=== PATIENT | male | born 1930 | race Caucasian/White ===

== ENCOUNTER → 2017-04-20 | Outpatient (CLI) | payer OTHER ==
[~2017-04-20] MED LIST: ACYC1CAP8 PO; ASPI-435 PO; ATEN50TA8 PO; CALC500C70 PO; CHOL100010 PO; CYT100 PO; FINA5TAB PO; FLM4 PO; METF-384 PO; MULT-506 PO; PRLSR20 PO; SIMV80TA2 PO; TRIATAB3 PO; VITA400C15 PO
[2017-04-20 14:55] LABS: BASO % 0.2 %; BASO ABS # 0.01 K/uL (0-0.2); COMPLETE YES; EOS % 1.3 %; HEMATOCRIT 46.4 % (42-52); IG% 0.3 %; LYMPH % 26.7 %; LYMPH ABS # 1.65 K/uL (1.2-3.4); MEAN CELL VOLUME 92.2 fL (80-100); MEAN CORPUSCULAR HEMOGLOBIN 30.8 pg (25-34); MEAN CORPUSCULAR HGB CONC 33.4 g/dl (32-36); MEAN PLATELET VOLUME 10.6 fL (7.4-10.4); MONO % 13.3 %; NEUT % 58.2 %; PLATELET COUNT 260 K/uL (130-400); RED BLOOD COUNT 5.03 M/uL (4.7-6.1); WHITE BLOOD COUNT 6.18 K/uL (4.8-10.8)
[2017-04-20 15:33] LABS: ALT/SGPT 22 U/L (12-78); AST/SGOT 14 U/L (15-37); BLOOD UREA NITROGEN 25 mg/dl (7-18); BUN/CREATININE RATIO 29.4 (10-20); CALCIUM 9.8 mg/dl (8.5-10.1); CARBON DIOXIDE 32 mmol/L (21-32); CHLORIDE 101 mmol/L (98-107); CREATININE 0.85 mg/dl (0.60-1.40); GLUCOSE 101 mg/dl (70-99); POTASSIUM 4.1 mmol/L (3.5-5.1); SODIUM 138 mmol/L (136-145)
[2017-04-20 15:35] LABS: ALB/GLOB RATIO 1.3 (0.9-2); ALKALINE PHOSPHATASE 59 U/L (45-117)
== END | disposition home or self-care (01) ==
LOC: C.LAB 13:04
PROVIDERS: ATTEND Nurse Practitioner Family
DX: C82.91 Follicular lymphoma, unspecified, lymph nodes of head, face, and neck (principal)

== ENCOUNTER → 2017-04-24 | Outpatient (CLI) | payer OTHER ==
[~2017-04-24] MED LIST changes: +OPTIRAY 320 IV PRN
--- NOTE | 2017-04-24 12:25 | DIAGNOSTIC IMAGING REPORT ---
CT ABD/PELVIS IV AND ORAL CONT CLINICAL HISTORY: Lymphoma COMPARISON STUDY: 10/22/2015 TECHNIQUE: Following the IV administration of 93 mL of Optiray-320, CT scan of the abdomen and pelvis was performed from the lung bases to the proximal femurs. Images are reviewed in the axial, sagittal, and coronal planes. IV contrast was administered without complication. A dose lowering technique was utilized adhering to the principles of ALARA. CT DOSE: FINDINGS: Lower chest: There are dependent atelectatic changes. Liver: The contrast-enhanced liver is normal in size, contour, and attenuation. There is no intrahepatic biliary ductal dilatation. The hepatic veins and portal veins are patent. Gallbladder: Not visualized and presumed surgically absent Spleen: Normal in size and attenuation. Pancreas: Unremarkable. Adrenal glands: Unremarkable. Kidneys: There are bilateral renal cysts. The largest in the left measures 6.4 cm. The largest in the right measures 6.6 cm. The right renal cyst demonstrates minimal wall thickening but this remains unchanged the prior study. Bowel: There are no transition zones to indicate bowel obstruction. There are no findings to indicate acute diverticulitis. There is no evidence of acute appendicitis. Peritoneum: There is no free air. There is no ascites. There are postsurgical changes of a ventral hernia repair with mesh. Superior to the mesh there is a upper abdominal fat-containing ventral hernia. This was present on the prior study. Vasculature: The abdominal aorta is normal in course and caliber. Adenopathy: None. Pelvic viscera: The bladder, and pelvic viscera are unremarkable. Skeletal structures: No destructive osseous lesions are seen. IMPRESSION: No acute intra-abdominal or pelvic findings. No evidence of pathologic adenopathy. Electronically signed by: Franky Gill M.D. 04/24/2017 12:24 PM Dictated Date/Time: 04/24/2017 12:18 PM
--- NOTE | 2017-04-24 12:34 | DIAGNOSTIC IMAGING REPORT ---
CHEST CT WITH CONTRAST CT DOSE: 928.64 mGy.cm HISTORY: Lymphoma. TECHNIQUE: Multiaxial CT images of the chest were performed following the intravenous administration of contrast. A dose lowering technique was utilized adhering to the principles of ALARA. COMPARISON: Chest CT 10/22/2015. Chest CT 11/09/2014.. FINDINGS: The central airways are patent. No pleural effusions. No pneumothorax. Stable 3 mm subpleural nodule within the left lower lobe on image 145. Tiny fat-containing bilateral Bochdalek's hernias. Bibasilar linear densities favor mild atelectasis or scarring. Stable 7 mm pleural nodule within the right lower lobe on image 182. No new or suspicious pulmonary nodules identified. No suspicious lytic or blastic osseous lesions. No mediastinal or hilar lymphadenopathy. Stable subcentimeter mediastinal lymph nodes. Coronary artery calcifications. The heart remains mildly enlarged. Normal caliber thoracic aorta. The main pulmonary arteries are patent. IMPRESSION: No change compared to the prior studies. No evidence for metastatic disease or lymphadenopathy within the chest. Electronically signed by: Marcus Garcia M.D. 04/24/2017 12:33 PM Dictated Date/Time: 04/24/2017 12:25 PM
== END | disposition home or self-care (01) ==
LOC: C.CTS 11:34
PROVIDERS: ATTEND Nurse Practitioner Family
DX: C85.90 Non-Hodgkin lymphoma, unspecified, unspecified site (principal)

== ENCOUNTER → 2017-04-27 | Outpatient (CLI) | payer OTHER ==
[~2017-04-27] MED LIST changes: -OPTIRAY 320 IV PRN
[2017-04-27 18:14] LABS: BLOOD UREA NITROGEN 24 mg/dl (7-18); BUN/CREATININE RATIO 21.5 (10-20); CALCIUM 9.1 mg/dl (8.5-10.1); CARBON DIOXIDE 30 mmol/L (21-32); CHLORIDE 103 mmol/L (98-107); GLUCOSE 165 mg/dl (70-99); POTASSIUM 4.4 mmol/L (3.5-5.1); SODIUM 138 mmol/L (136-145)
== END | disposition home or self-care (01) ==
LOC: C.LABPVFM 15:06
PROVIDERS: ATTEND Nurse Practitioner
DX: I10 Essential (primary) hypertension (principal)

== ENCOUNTER 2021-01-31 10:09 | Inpatient (IN) ==
[2021-01-31] MEDS ORDERED: ceFAZolin 2000MG 2,000 MG/15 ML SYR IV STA (11:45)
[2021-01-31] MEDS ORDERED: SODIUM CHLORIDE 0.9% 500 ML IV SCH (11:45)
[2021-01-31 12:20] LABS: Basophils # (auto) 0.01 K/uL (0-0.2); Basophils % (auto) 0.1 %; Eosinophils # (auto) 0.03 K/uL (0-0.5); Eosinophils % (auto) 0.3 %; Immature Granulocytes # (auto) 0.03 K/uL (0.00-0.02); Immature Granulocytes % (auto) 0.3 %; Lymphocytes # (auto) 1.16 K/uL (1.2-3.4); Lymphocytes % (auto) 12.8 %; Mean Corpuscular Hemoglobin 28.7 pg (25-34); Mean Corpuscular Hgb Conc 32.3 g/dL (32-36); Mean Corpuscular Volume 89.1 fL (80-100); Mean Platelet Volume 9.7 fL (7.4-10.4); Monocytes # (auto) 1.37 K/uL (0.11-0.59); Monocytes % (auto) 15.1 %; Neutrophils # (auto) 6.46 K/uL (1.4-6.5); Neutrophils % (auto) 71.4 %; Platelet Count 471 K/uL (130-400); RDW Standard Deviation 61.1 fL (36.4-46.3); Red Blood Count 3.48 M/uL (4.7-6.1); White Blood Count 9.06 K/uL (4.8-10.8)
[2021-01-31] MEDS ORDERED: HYDROmorphone INJ 0.5 MG/0.5 ML SYR IV STA (12:23)
--- NOTE | 2021-01-31 12:36 | XRay Report ---
XR chest 1V portable CLINICAL HISTORY: weakness COMPARISON STUDY: Chest radiograph January 01, 2021. FINDINGS: Prosthetic aortic valve is incidentally noted. There is moderate cardiomegaly. A moderate r ight pleural effusion has developed since prior exam. There is associated right lung opacity. There i s pulmonary vascular congestion. There is no pneumothorax. IMPRESSION: 1. Interval development of moderate right pleural effusion with associated airspace opacity. 2. Pulmonary vascular congestion with suspected mild pulmonary edema. ACT 112: Negative or not required by law. Electronically signed by: Vaibhav Bui M.D. 01/31/2021 12:35 PM
[2021-01-31 12:40] LABS: Albumin Level 2.4 gm/dl (3.4-5.0); Calcium 7.9 mg/dl (8.5-10.1); Creatinine Clr Calc Pharmacy 78.6 ml/min; Est GFR (African American) 100.7 ml/min; Est GFR (Non-African American) 86.9 ml/min; Magnesium 1.5 mg/dl (1.8-2.4); Potassium 4.5 mmol/L (3.5-5.1)
[2021-01-31 12:51] LABS: Albumin Globulin Ratio 0.7 (0.9-2); Bilirubin,Total 0.8 mg/dl (0.2-1); Globulin 3.5 gm/dl (2.5-4.0); Thyroid Stimulating Hormone 1.75 uIu/ml (0.300-4.500); Total Protein 5.9 gm/dl (6.4-8.2)
--- NOTE | 2021-01-31 12:58 | Emergency Department Note ---
History of Present Illness General Chief complaint: Leg Injury/Pain Time Seen by Provider: 01/31/21 11:30 History of Present Illness Maximum Pain Intensity: 8 89-year-old male presents to the ED with a chief complaint of generalized weakness. The patient was discharged from [facility] yesterday after 15 days of rehab. The family states that the patient went home and has not been able to walk this morning. He complains of some pain in his legs where there is some mild erythema. The patient was started on Keflex a few days ago for cellulitis of his legs. The patient denies any other specific complaints at this time. He is somewhat of a poor historian. Home Medications Medication Instructions Recorded Confirmed Type cholecalciferol (vitamin D3) 25 1,000 unit PO QPM 12/02/18 01/16/21 History mcg (1,000 unit) capsule (Vitamin D3) vitamin E 100 unit capsule 400 unit PO QPM 12/02/18 01/16/21 History clopidogrel 75 mg tablet 75 mg PO QAM 12/16/18 01/16/21 History finasteride 5 mg tablet 5 mg PO QAM 01/06/19 01/16/21 History nitroglycerin 0.4 mg sublingual 0.4 mg SL Q5M PRN #20 tab 04/07/19 01/16/21 Rx tablet (Nitrostat) warfarin 2.5 mg tablet 2.5 mg PO QPM 04/09/19 01/16/21 History atenolol 50 mg tablet 25 mg PO DAILY tab 02/21/20 01/16/21 History acyclovir 200 mg capsule 200 mg PO UD PRN 01/01/21 01/16/21 History metformin 1,000 mg tablet 1,000 mg PO BID 01/01/21 01/16/21 History thiamine HCl (vitamin B1) 100 mg 100 mg PO QPM 01/01/21 01/16/21 History tablet (Vitamin B-1) amoxicillin 500 mg-potassium 1 tab PO BID #20 tab 01/10/21 01/16/21 Rx clavulanate 125 mg tablet (Augmentin) vit 1 tab PO QPM tab 01/10/21 01/16/21 History [id number] 500 mg-50 mg-25 mg-40 mg tablet (Bioflex) atorvastatin 40 mg tablet 40 mg PO QAM 01/16/21 01/16/21 History pantoprazole 40 mg tablet,delayed 40 mg PO DAILY 01/16/21 01/16/21 History release trazodone 50 mg tablet 50 mg PO HS PRN 01/16/21 01/16/21 History triamterene 37.5 1 cap PO DAILY 01/16/21 01/16/21 History mg-hydrochlorothiazide 25 mg capsule Allergies Allergy/AdvReac Type Severity Reaction Status Date / Time adhesive Allergy Unknown SKIN Verified 01/16/21 12:54 IRRITATION diphenhydramine AdvReac Unknown PROSTATE Verified 01/16/21 12:54 PROBLEMS Latex Allergy Unknown Rash Uncoded 01/16/21 12:54 all antihistamines AdvReac Severe prostate Uncoded 01/16/21 12:54 problems Past Med/Surg History Medical History (Updated 01/31/21 @ 12:58 by Denny Vargas DO) Abnormal weight loss Aortic stenosis Benign prostate hyperplasia BPH with obstruction/lower urinary tract symptoms Carotid stenosis, non-symptomatic (12/27/18) Chronic reflux esophagitis Coronary artery disease 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 (12/10/18) DM (diabetes mellitus) Dyslipidemia, goal to be determined (06/26/09) Dyspnea on exertion Follicular lymphoma (~04/2014) GERD (gastroesophageal reflux disease) (12/10/18) Heart failure with preserved ejection fraction (12/27/18) High cholesterol HTN (hypertension) Hyperlipidemia (12/10/18) 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 Memory difficulty Orthostatic hypotension Vitamin B12 deficiency Surgical History History of cholecystectomy History of colon surgery History of colostomy temporary History of cystoscopy History of hernia repair History of prostate surgery laser vaporization with transurethral resection of prostate S/P cardiac cath 02/08 TAVAR mago procedure 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 Unable to obtain. Physical Exam Vital Signs Vital Signs - 24 hr 01/31/21 10:20 01/31/21 12:03 01/31/21 12:21 Temperature 36.5 C Temperature Source Oral Pulse Rate 75 67 Pulse Rate [Apical] 54 L Pulse Rhythm Regular Respiratory Rate 18 14 24 Respiratory Effort / Characteristics Non-Labored Respiratory Depth Shallow Respiratory Pattern Regular Blood Pressure 141/94 H Blood Pressure [Right Arm] 141/94 H Blood Pressure Mean 109 Blood Pressure Mean [Right Arm] 109 Blood Pressure Position [Right Arm] Lying Pulse Oximetry 94 99 95 Oxygen Delivery Method Room Air Room Air Room Air Sepsis Recent Fever Within 48 Hours No Sepsis New/Unexplained Change in Mental Status N/A Sepsis Action Taken by Nursing No Action Required CONSTITUTIONAL/VITAL SIGNS: Reviewed / noted above. GENERAL: Non-toxic in appearance. INTEGUMENTARY: Warm, dry, and [place]. HEAD: Normocephalic. EYES: without scleral icterus or trauma. ENT/OROPHARYNX: clear and moist. LYMPHADENOPATHY/NECK: Is supple without lymphadenopathy or meningismus. RESPIRATORY: Diminished breath sounds bilaterally with poor inspiratory effort. No increased work of breathing. CARDIOVASCULAR: Regular rate and rhythm. GI/ABDOMEN: Soft and nontender. No organomegaly or pulsatile mass. EXTREMITIES: Warm and well perfused. Some erythema noted to the bilateral legs right greater than left. There is hypersensitivity to the skin of the legs. BACK: No CVA tenderness. NEUROLOGICAL: Intact without focal deficits. PSYCHIATRIC: normal affect. MUSCULOSKELETAL: Normally developed with good muscle tone. TRIAGE NURSING DOCUMENTATION REVIEWED. Course Administered Medications Discontinued Medications Hydromorphone HCl (Hydromorphone Inj 0.5 Mg/0.5 Ml Syr) 0.5 mg IV NOW STA Stop: 01/31/21 12:24 Last Admin: 01/31/21 12:47 Dose: 0.5 mg Documented by: [id number] Sodium Chloride (Nss) 500 mls @ 999 mls/hr IV .Q31M DICK Stop: 01/31/21 12:15 Last Admin: 01/31/21 12:19 Dose: 999 mls/hr Documented by: [id number] Cefazolin Sodium (Ancef 2000mg) 2,000 mg in 15 mls @ 3.75 mls/min IV NOW STA Stop: 01/31/21 11:48 Last Admin: 01/31/21 12:19 Dose: 3.75 mls/min Documented by: [id number] Medical Decision Making Differential Diagnosis Differential includes acute coronary syndrome, myocardial infarction, CVA, TIA, anemia, infection, pneumonia, UTI, pyelonephritis, poor nutrition, dehydration, electrolyte disturbance,hypoglycemia. Medical Records Attestation: I reviewed the patient's medical records. Home Medications Current Medication List: was personally reviewed by me Laboratory Data Attestation: I reviewed the patient's lab results. Result diagrams: 01/31/21 12:10 01/31/21 12:10 Lab Results 01/31/21 01/31/21 Range/Units 12:10 12:10 WBC 9.06 (4.8-10.8) K/uL RBC 3.48 L (4.7-6.1) M/uL Hgb 10.0 L (14.0-18.0) g/dL Hct 31.0 L (42-52) % MCV 89.1 (80-100) fL MCH 28.7 (25-34) pg MCHC 32.3 (32-36) g/dL RDW Std Deviation 61.1 H (36.4-46.3) fL RDW Coeff of [place] 19.0 H (11.5-14.5) % Plt Count 471 H (130-400) K/uL MPV 9.7 (7.4-10.4) fL Immature Gran % (Auto) 0.3 % Neut % (Auto) 71.4 % Lymph % (Auto) 12.8 % [place] % (Auto) 15.1 % Eos % (Auto) 0.3 % Baso % (Auto) 0.1 % Neut # (Auto) 6.46 (1.4-6.5) K/uL Lymph # (Auto) 1.16 L (1.2-3.4) K/uL [place] # (Auto) 1.37 H (0.11-0.59) K/uL Eos # (Auto) 0.03 (0-0.5) K/uL Baso # (Auto) 0.01 (0-0.2) K/uL Immature Gran # (Auto) 0.03 H (0.00-0.02) K/uL Sodium 131 L (136-145) mmol/L Potassium 4.5 (3.5-5.1) mmol/L Chloride 100 (98-107) mmol/L Carbon Dioxide 26 (21-32) mmol/L Anion Gap 5.0 (3-11) BUN 20 H (7-18) mg/dl Creatinine 0.65 (0.6-1.4) mg/dl Est Cr Clr Drug Dosing 78.6 ml/min Est GFR ( Amer) 100.7 ml/min Est GFR (Non-Af Amer) 86.9 ml/min BUN/Creatinine Ratio 31.0 H (10-20) Glucose 82 (70-99) mg/dl Calcium 7.9 L (8.5-10.1) mg/dl Magnesium 1.5 L (1.8-2.4) mg/dl Total Bilirubin 0.8 (0.2-1) mg/dl AST 25 (15-37) U/L ALT 25 (12-78) U/L Alkaline Phosphatase 165 H (45-117) U/L Total Creatine Kinase 61 (39-308) U/L Total Protein 5.9 L (6.4-8.2) gm/dl Albumin 2.4 L (3.4-5.0) gm/dl Globulin 3.5 (2.5-4.0) gm/dl Albumin/Globulin Ratio 0.7 L (0.9-2) TSH 1.750 (0.300-4.500) uIu/ml Imaging Data Radiologist's Impression: Chest X-Ray 01/31/21 11:45 XR chest 1V portable CLINICAL HISTORY: weakness COMPARISON STUDY: Chest radiograph January 01, 2021. FINDINGS: Prosthetic aortic valve is incidentally noted. There is moderate cardiomegaly. A moderate right pleural effusion has developed since prior exam. There is associated right lung opacity. There is pulmonary vascular congestion. There is no pneumothorax. IMPRESSION: 1. Interval development of moderate right pleural effusion with associated airspace opacity. 2. Pulmonary vascular congestion with suspected mild pulmonary edema. ACT 112: Negative or not required by law. Electronically signed by: Vaibhav Bui M.D. 01/31/2021 12:35 PM ECG Data Attestation: I personally reviewed and interpreted this ECG as follows: MDM Narrative Patient presents to the ED with a chief complaint of generalized weakness and inability to be cared for at home, per the family. He lives with his elderly . He was too weak to get out of bed this morning. He was discharged from rehab facility yesterday. He was started on Keflex a few days ago for cellulitis of the legs. He does have erythema to the legs. He is afebrile here. His chest x-ray suggest a new right-sided moderate pleural effusion. There is some mild pulmonary vascular congestion with mild pulmonary edema. White blood cell count was unremarkable. Hemoglobin was baseline at 10. TSH was normal. Chemistry panel shows a calcium 7.9 and a magnesium of 1.5. BUN and creatinine are within normal limits. The patient will require further inpat ient evaluation and care. He was given IV Ancef as well as some IV Dilaudid for his discomfort in his legs. He was given some IV fluids. He will be seen by the hospitalist for further patient evaluation and care. Impression & Plan Generalized muscle weakness, Cellulitis of leg, Pleural effusion Discharge Plan Visit Data Chief Complaint: Leg Injury/Pain ED Provider: Denny Vargas Discharge Problem: Generalized muscle weakness, Cellulitis of leg, Pleural effusion Patient Disposition: Being Evaluated by Hospitalist Forms Stand Alone Forms: [facility] Prescriptions Prescriptions: No Action nitroglycerin [Nitrostat] 0.4 mg tablet, sublingual 0.4 mg SL Q5M PRN (Reason: chest pain) Qty: 20 RF: 1 clopidogrel 75 mg tablet 75 mg PO QAM RF: 0 warfarin 2.5 mg tablet 2.5 mg PO QPM RF: 0 atenolol 50 mg tablet 25 mg PO DAILY RF: 0 amoxicillin-pot clavulanate [Augmentin] 500-125 mg tablet 1 tab PO BID Qty: 20 RF: 0 vitamin E 100 unit Capsule 400 unit PO QPM RF: 0 cholecalciferol (vitamin D3) [Vitamin D3] 1,000 unit Capsule 1,000 unit PO QPM RF: 0 finasteride 5 mg tablet 5 mg PO QAM RF: 0 metformin 1,000 mg tablet 1,000 mg PO BID RF: 0 thiamine HCl (vitamin B1) [Vitamin B-1] 100 mg Tablet 100 mg PO QPM RF: 0 acyclovir 200 mg Capsule 200 mg PO UD PRN (Reason: Wound Healing) RF: 0 Bioflex 677-42-38-40 mg tablet 1 tab PO QPM RF: 0 atorvastatin 40 mg tablet 40 mg PO QAM RF: 0 trazodone 50 mg tablet 50 mg PO HS PRN (Reason: Pain) RF: 0 triamterene-hydrochlorothiazid 37.5-25 mg capsule 1 cap PO DAILY RF: 0 pantoprazole 40 mg tablet,delayed release (DR/EC) 40 mg PO DAILY RF: 0 Referrals Referrals: Stella Mazariegos CRNP [Primary Care Provider] -
--- NOTE | 2021-01-31 13:38 | History & Physical Report ---
Date of Service January 31, 2021 Assessment & Plan (1) Cellulitis of leg: Plan: 89 y/o M Hx HTN, HLD, DM, advanced dementia, AF, CAD, diastolic CHF. The pt was discharged from a rehab facility one day prior and has not been managing well at home. He is lethargic and weak per family. No CP, cough, fevers, n/v or diarrhea reported. The pt cannot provide any additional information. He does appear to have cellulitis and worsening of a LLE ulcer. Labs are notable for stable anemia, mild hyponatremia. Additionally, there is a new moderate R pleural effusion associated with an opacity in the R lung. 1) Possible PNM and effusion. Normally would schedule a thoracentesis, however, the pt suffers from advanced dementia and takes Coumadin for AF. We will treat for HCAP and reimage AM for the time being. He does not display hypoxia on admission. 2) Ulcers and cellulitis - Should be covered with . Consider adding Vanc if there is worsening. Wound care requested. 3) Hyponatremia - hypovolemic - Pt's diuretics held. Will provide gentle IVF. 4) CHF - dehydrated on admission - cont atenolol - diuretics held pending AM reassessment. 5) AF - rate controlled - cont atenolol, Coumadin - INR is pending on admission. 6) CAD - no evidence of ACS - cont statin, beta hugo, Plavix 7) Advanced dementia - family would like pt admitted to [facility] for rehab if possible 8) DM - sliding scale Code status is full while family discusses matter Total time for this admit including review of labs, meds, imaging, records - discussion with pt and ER attending - 55 min (2) Pleural effusion: (3) Dementia: (4) Atrial fibrillation: History of Present Illness Chief Complaint: Advanced dementia, cellulitis, PNM/effusion Primary Care Provider: JOSELYN Biggs 89 y/o M Hx HTN, HLD, DM, advanced dementia, AF, CAD, diastolic CHF. The pt was discharged from a rehab facility one day prior and has not been managing well at home. He is lethargic and weak per family. No CP, cough, fevers, n/v or diarrhea reported. The pt cannot provide any additional information. He does appear to have cellulitis and worsening of a LLE ulcer. Labs are notable for stable anemia, mild hyponatremia. Additionally, there is a new moderate R pleural effusion associated with an opacity in the R lung. 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 12) BPH Surgical: TAVR Social: Distant 15 year pack history Does not drink Family: Noncontributory Allergies Allergy/AdvReac Type Severity Reaction Status Date / Time adhesive Allergy Unknown SKIN Verified 01/16/21 12:54 IRRITATION diphenhydramine AdvReac Unknown PROSTATE Verified 01/16/21 12:54 PROBLEMS Latex Allergy Unknown Rash Uncoded 01/16/21 12:54 all antihistamines AdvReac Severe prostate Uncoded 01/16/21 12:54 problems Home Medications Medication Instructions Recorded Confirmed Type cholecalciferol (vitamin D3) 25 1,000 unit PO QPM 12/02/18 01/16/21 History mcg (1,000 unit) capsule (Vitamin D3) vitamin E 100 unit capsule 400 unit PO QPM 12/02/18 01/16/21 History clopidogrel 75 mg tablet 75 mg PO QAM 12/16/18 01/16/21 History finasteride 5 mg tablet 5 mg PO QAM 01/06/19 01/16/21 History nitroglycerin 0.4 mg sublingual 0.4 mg SL Q5M PRN #20 tab 04/07/19 01/16/21 Rx tablet (Nitrostat) warfarin 2.5 mg tablet 2.5 mg PO QPM 04/09/19 01/16/21 History atenolol 50 mg tablet 25 mg PO DAILY tab 02/21/20 01/16/21 History acyclovir 200 mg capsule 200 mg PO UD PRN 01/01/21 01/16/21 History metformin 1,000 mg tablet 1,000 mg PO BID 01/01/21 01/16/21 History thiamine HCl (vitamin B1) 100 mg 100 mg PO QPM 01/01/21 01/16/21 History tablet (Vitamin B-1) amoxicillin 500 mg-potassium 1 tab PO BID #20 tab 01/10/21 01/16/21 Rx clavulanate 125 mg tablet (Augmentin) vit 1 tab PO QPM tab 01/10/21 01/16/21 History Y-dbcnsma-bpwtlhcae-rutin-[id number] 500 mg-50 mg-25 mg-40 mg tablet (Bioflex) atorvastatin 40 mg tablet 40 mg PO QAM 01/16/21 01/16/21 History pantoprazole 40 mg tablet,delayed 40 mg PO DAILY 01/16/21 01/16/21 History release trazodone 50 mg tablet 50 mg PO HS PRN 01/16/21 01/16/21 History triamterene 37.5 1 cap PO DAILY 01/16/21 01/16/21 History mg-hydrochlorothiazide 25 mg capsule Past Med/Surg History Medical History (Updated 01/31/21 @ 13:49 by Adalid Peck MD) Abnormal weight loss Aortic stenosis Benign prostate hyperplasia BPH with obstruction/lower urinary tract symptoms Carotid stenosis, non-symptomatic (12/27/18) Chronic reflux esophagitis 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 (12/10/18) DM (diabetes mellitus) Dyslipidemia, goal to be determined (06/26/09) Dyspnea on exertion Follicular lymphoma (~04/2014) GERD (gastroesophageal reflux disease) (12/10/18) Heart failure with preserved ejection fraction (12/27/18) High cholesterol HTN (hypertension) Hyperlipidemia (12/10/18) 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 Memory difficulty Orthostatic hypotension Vitamin B12 deficiency Surgical History History of cholecystectomy History of colon surgery History of colostomy temporary History of cystoscopy History of hernia repair History of prostate surgery laser vaporization with transurethral resection of prostate S/P cardiac cath 02/08 TAVAR mago procedure 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) Family History Other No family history of adverse response to anesthesia No family history of bleeding disorder Social History Smoking Status: Never smoker Second Hand Exposure: No; Hx Alcohol Use: Yes Alcohol type: beer Hx Substance Use: No Preferred Language: Icelandic marital status: Current Living Situation: Spouse current occupation: Retired Feels Safe at Home: Yes Seatbelt Use: always Review of Systems Review of Systems: Cannot be obtained from this pt owing to dementia Physical Exam Physical Exam: General: Thin, disoriented, elderly M - no distress ENT: No erythema or exudates, no thrush Eyes: RADHA, EOMI Head and neck: Normocephalic, atraumatic, No JVD, neck is supple. Chest/heart: Nontender, S1,2 irreg, mild murmur Lungs: Limited exam as pt would not stop talking Abdomen: Nontender, nondistended, BS+ Neuro: No motor deficits Musculoskeletal: No joint inflammation, muscle tenderness, FROM Skin: Large ulcer with exudate on L calf. Some mild cellulitis developing on RLE. Shallow ulcers on R and L shins. Multiple bruises and excoriations on arms. Extremities: No clubbing, cyanosis, edema Results & Data Results & Data ([facility]) Vital Signs (Past 12 Hours) Vital Signs Temp Pulse Pulse Resp BP BP Pulse Ox 01/31/21 12:21 54 L 24 141/94 H 95 01/31/21 12:03 67 14 99 01/31/21 10:20 97.7 F 75 18 141/94 H 94 PG Care Time/CCT Total # of Minutes Spent Total Time Spent with Patient: Total time spent is greater than 50% in coordination of care (as documented) at patient's floor/unit and/or counseling patient: Coding Level of Care Code 95127 Initial Inpt Care Lvl 3 Diagnoses Cellulitis of leg L03.115 Laterality: right Pleural effusion J90 Dementia F03.90 Atrial fibrillation I48.91 (1) Cellulitis of leg Laterality: right Qualified Code(s): L03.115 - Cellulitis of right lower limb
[2021-01-31 13:47] LABS: INR 3.5 (0.9-1.1); Prothrombin Time 32.2 Seconds (9.0-12.0)
--- NOTE | 2021-01-31 15:10 | Electrocardiogram Report ---
Test Reason : Blood Pressure : / mmHG Vent. Rate : 074 BPM Atrial Rate : 056 BPM P-R Int : 000 ms QRS Dur : 106 ms QT Int : 420 ms P-R-T Axes : 000 099 -89 degrees QTc Int : 466 ms Atrial fibrillation Rightward axis Incomplete left bundle block Diffuse Nonspecific ST and T wave abnormality Abnormal ECG When compared with ECG of 16-JAN-2021 12:51, HR has increased by 23 bpm Otherwise no significant change Confirmed by José Brown ([id number]) on 01/31/2021 3:10:21 PM Referred By: REFERRED SELF Confirmed By:José Brown
[2021-01-31] MEDS ORDERED: GLUCAGON FOR INJ 1 MG VIAL SQ PRN (16:58)
[2021-01-31] MEDS ORDERED: GLUCOSE 10 TABS/TUBE PO PRN (16:58)
[2021-01-31] MEDS ORDERED: CARBOHYDRATES FOR HYPOGLYCEMIA PO PRN (16:58)
[2021-01-31] MEDS ORDERED: GLUCOSE 40% GEL 15 GM TUBE PO PRN (16:58)
[2021-01-31] MEDS ORDERED: NITROGLYCERIN SL 0.4 MG/TAB TAB SL PRN (16:58)
[2021-01-31] MEDS ORDERED: DEXTROSE 50% 50 ML SYRINGE IV PRN (16:58)
[2021-01-31] MEDS ORDERED: AZITHROMYCIN 500 MG in DEXTROSE 5% 250 ML IV SCH (17:30)
[2021-01-31] MEDS: INSULIN ASPART 100 UNITS/ML 3 ML PEN SC SCH ×2 (18:33→21:51)
[2021-01-31] MEDS: SODIUM CHLORIDE 0.9% 500 ML IV SCH (18:41)
[2021-01-31] MEDS: THIAMINE HCL 100 MG TAB PO SCH (20:29)
[2021-02-01] MEDS: traZODone HCL 50 MG TAB PO PRN ×2 (01:27→20:40)
[2021-02-01] MEDS: LORazepam 0.5 MG TAB PO PRN ×2 (02:27→20:40)
[2021-02-01] MEDS: SODIUM CHLORIDE 0.9% 500 ML IV SCH ×2 (05:55→08:46)
[2021-02-01] MEDS: FINASTERIDE 5 MG TAB PO SCH (07:51)
[2021-02-01] MEDS: ATENOLOL 25 MG TABLET PO SCH (07:51)
[2021-02-01] MEDS: PANTOprazole 40 MG TAB PO SCH (07:51)
[2021-02-01] MEDS: ATORVASTATIN 40 MG TAB PO SCH (07:51)
[2021-02-01] MEDS ORDERED: PIPERACILL/TAZOBAC CONSULT ACTIVE PRN (08:21)
--- NOTE | 2021-02-01 08:24 | XRay Report ---
XR chest 1V portable CLINICAL HISTORY: pnm, effusion COMPARISON STUDY: Chest radiograph January 31, 2021. FINDINGS: A moderate right pleural effusion is noted. This may have slightly decreased. This associat ed right basilar opacity. There is pulmonary vascular congestion. Cardiomegaly is noted. There may be left basilar opacity. This is unchanged. IMPRESSION: 1. Slight decrease in a moderate right pleural effusion with associated airspace opacity which may re flect consolidation or atelectasis. 2. Pulmonary vascular congestion. 3. Possible mild left basilar opacity. ACT 112: Negative or not required by law. Electronically signed by: Vaibhav Bui M.D. 02/01/2021 8:22 AM
[2021-02-01] MEDS ORDERED: PIPERACILLIN/TAZOBACTAM 4.5 GM in DEXTROSE 5% 100 ML IV SCH (08:30)
[2021-02-01] MEDS: INSULIN ASPART 100 UNITS/ML 3 ML PEN SC SCH ×4 (08:44→20:40)
[2021-02-01] MEDS ORDERED: FUROSEMIDE 40 MG in SYRINGE 0 ML IV ONE (09:00)
[2021-02-01] MEDS ORDERED: PIPERACILLIN/TAZOBACTAM 3.375 GM in DEXTROSE 5% 100 ML IV ONE (09:00)
[2021-02-01] MEDS ORDERED: CLOPIDOGREL BISULFATE 75 MG TAB PO SCH (09:00)
[2021-02-01 09:07] LABS: Basophils # (auto) 0.02 K/uL (0-0.2); Basophils % (auto) 0.2 %; Eosinophils # (auto) 0.01 K/uL (0-0.5); Eosinophils % (auto) 0.1 %; Hematocrit (blood only) 30.6 % (42-52); Hemoglobin 9.7 g/dL (14.0-18.0); Immature Granulocytes # (auto) 0.04 K/uL (0.00-0.02); Immature Granulocytes % (auto) 0.4 %; Lymphocytes # (auto) 1.17 K/uL (1.2-3.4); Lymphocytes % (auto) 11.9 %; Mean Corpuscular Hemoglobin 28.4 pg (25-34); Mean Corpuscular Hgb Conc 31.7 g/dL (32-36); Mean Corpuscular Volume 89.5 fL (80-100); Mean Platelet Volume 9.3 fL (7.4-10.4); Monocytes # (auto) 1.36 K/uL (0.11-0.59); Monocytes % (auto) 13.9 %; Neutrophils % (auto) 73.5 %; Nucleated RBC # (auto) 0.05 K/uL (0-0); Nucleated RBC % (auto) 0.6 %; Platelet Count 496 K/uL (130-400); RDW Coefficient of Variation 19.1 % (11.5-14.5); RDW Standard Deviation 62.2 fL (36.4-46.3); Red Blood Count 3.42 M/uL (4.7-6.1)
[2021-02-01 09:21] LABS: INR 3.1 (0.9-1.1); Prothrombin Time 28.7 Seconds (9.0-12.0)
[2021-02-01 09:35] LABS: BUN Creatinine Ratio 29.6 (10-20); Est GFR (African American) 103.3 ml/min; Est GFR (Non-African American) 89.2 ml/min; Magnesium 1.6 mg/dl (1.8-2.4); Potassium 4.4 mmol/L (3.5-5.1)
[2021-02-01] MEDS ORDERED: MAGNESIUM SULFATE / D5W 1 GM/100 ML BAG IV ONE (11:00)
[2021-02-01] MEDS ORDERED: OPTIRAY 320 100ml IV ONE (11:56)
[2021-02-01 12:21] LABS: Appearance Urine Clear (Clear); Bilirubin Urine Negative (Negative); Blood Urine Negative (Negative); Color Urine Yellow; Glucose Urine UA Negative (Negative); Ketones Urine Negative (Negative); Leukocyte Esterase Urine Negative (Negative); Nitrite Urine Negative (Negative); Protein Urine Negative (Negative); Specific Gravity Urine 1.006 (1.000-1.030); Urobilinogen Urine Negative (Negative)
--- NOTE | 2021-02-01 12:45 | CT Scan Report ---
CT OF THE CHEST WITH IV CONTRAST CLINICAL HISTORY: Right pleural effusion. RIGHT BASILAR AIRSPACE OPACITY COMPARISON STUDY: Chest CT dated 04/24/2017, chest x-ray dated 02/01/2021 TECHNIQUE: Following the IV administration of 94 mL of Optiray, CT of the thorax was performed from the thoracic inlet to the lung bases. Images are reviewed in the axial, sagittal, and coronal planes. IV contrast was administered without complication. A dose lowering technique was utilized adhering to the principles of ALARA. CT DOSE: 297.17 mGy.cm FINDINGS: Thyroid: Imaged portions of the thyroid gland are normal in appearance. Thoracic aorta: There is mild ectasia of descending thoracic aorta which measures 37 mm. Pulmonary vasculature: The pulmonary trunk is normal in caliber. There are no central filling defects identified to suggest pulmonary embolus. Note that this examination was not protocoled for the evalu ation of pulmonary emboli. HEART: The heart is enlarged with coronary artery calcifications. There are postsurgical changes of a n aortic valve prosthesis. There is reflux of contrast into the hepatic veins suggesting elevated rig ht heart pressures Lungs and pleural spaces: There is a moderate right pleural effusion and small to moderate left pleur al effusion. Airspace opacities within the lower lobes, likely representing compressive atelectasis. There are also right upper lobe airspace opacities. Atelectasis favored over pneumonia. Mediastinum: There is no mediastinal lymphadenopathy. There is no evidence of pathologic mediastinal lymphadenopathy Nasreen: There is no evidence of pathologic hilar adenopathy Axilla: There is no evidence of pathologic axillary lymphadenopathy Upper abdomen: There is a partially visualized 4.5 cm right renal cyst with faint rim calcification. Skeletal structures: There are no lytic or blastic osseous lesions. IMPRESSION: 1. Cardiomegaly, aortic valve replacement, and pericardial calcifications 2. Reflux of contrast into the hepatic veins suggesting elevated right heart pressures 3. Moderate right pleural effusion and [id number] left pleural effusion 4. Bilateral lower lobe dependent opacities, likely representing compressive atelectasis 5. Right upper lobe airspace opacities, atelectasis favored over pneumonia. 6. No evidence of pathologic adenopathy ACT 112: Negative or not required by law. Electronically signed by: Franky Gill M.D. 02/01/2021 12:44 PM
[2021-02-01] MEDS ORDERED: GADOBUTROL 65ML VIAL IV ONE (14:24)
--- NOTE | 2021-02-01 15:14 | Magnetic Resonance Report ---
MRI OF THE LEFT TIBIA AND FIBULA COMBO CLINICAL HISTORY: Inability to bear weight. Leg pain. COMPARISON STUDY: Radiographs of the left tibia and fibula dated 01/16/2021. TECHNIQUE: MRI of the left tibia and fibula is performed utilizing various T1 and T2-weighted sequenc es in the axial, sagittal, and coronal planes. Contrast-enhanced sequences were acquired following th e IV administration of 7.5 cc of Gadavist. The examination is significantly compromised by motion art ifact. FINDINGS: There is no marrow edema or evidence of fracture in the tibia or fibula. There is generaliz ed atrophy of the regional musculature. Marked intramuscular edema is seen involving the medial head of the gastrocnemius muscle. There is no associated abnormal postcontrast enhancement. Foci of fat wi thin the calf musculature seen on the T1-weighted sequences are likely related to remote injury. Supe rficial and deep soft tissue edema is present throughout the left leg. No organized fluid collection is seen to suggest abscess. The Achilles tendon is grossly intact. IMPRESSION: 1. Significantly motion compromised examination. 2. No osseous abnormality is seen involving the left tibia or fibula. 3. There is marked and asymmetric intramuscular edema involving the medial head of the gastrocnemius muscle. This suggests a nonspecific myositis and clinical correlation will be required. 4. Diffuse soft tissue edema is present throughout the left leg. 5. No organized fluid collection is seen to indicate abscess. Electronically signed by: Jordan Dumont M.D. 02/01/2021 3:13 PM
[2021-02-01] MEDS ORDERED: WARFARIN SOD 2.5 MG TAB PO SCH (16:00)
[2021-02-01] MEDS: PIPERACILLIN/TAZOBACTAM 3.375 GM in DEXTROSE 5% 100 ML IV SCH (16:03)
--- NOTE | 2021-02-01 17:42 | Hospitalist Progress Note ---
Date of Service February 01, 2021 Assessment & Plan (1) Cellulitis of leg: Plan: * Cellulitis with impressive wound on bilateral legs * Need further imaging to ensure no involvement of the deeper musculaturewill obtain MRI with contrast dressed * I have ordered a wound culture. Will send for culture and sensitivity * I have changed his antibiotic regimen from Ancef to Zosyn for added gram- negative coverage given his history of diabetes * Consult wound nurseappreciate recommendations * Pending MRImay need general surgery consult (2) Pleural effusion: Plan: * Does not appear to be symptomatic * Obesity suggested in the right lower lobe. * Transitioning antibiotic therapy to Zosyn which would provide adequate coverage for hospital-acquired pneumonia given his recent stay at [facility] and also aspiration given location being in the right lower lobe * Will obtain a CT scan to ensure patient does not have a mass * There was suggestion of pulmonary vascular congestion seen on imaging. Will stop IV fluids and give Lasix (3) Dementia: Plan: * Chronic. Baseline unknown but likely at baseline (4) Atrial fibrillation: Plan: * Currently in a normal sinus rhythm with controlled ventricular rate. Will hold Coumadin for now until MRI completed (in case surgical debridement needed) Plan: Plan to be discussed with Dr. Robison. Further orders as warranted. Admission and Anticipated Discharge Date Admission Date: January 31, 2021 Subjective Patient seen on daily rounds today. He is an 89-year-old white male with a reported history of HTN, HLD, diabetes mellitus, dementia, atrial fibrillation, CAD, and CHF. He is a questionable historian. From what I can gather, he had approximately 15-day stay at [facility] for rehab and was discharged on the day prior to arrival. He was weak and unable to get out of bed which prompted his evaluation to our emergency room. There he was found to have multiple wounds primarily on his lower legs. He had been started on a course of Keflex to discharge from [facility]. It is uncertain as to how these wounds appeared. In addition, his work-up yielded development of a moderate right pleural effusion with an airspace opacity along with pulmonary vascular congestion concerning for pulmonary edema. Patient denies any respiratory symptoms including a cough or shortness of breath. He is not hypoxic (92% on room air). He does have a reported history of CHF.I do not see Lasix on his medication list. Review of Systems Review of Systems: Patient is a questionable historian given his dementia. He is oriented to self, time. Perhaps his history is reliable All systems reviewed and are unremarkable except as noted in HPI and below Complains of pain of the lower extremities but otherwise, denies fevers, chills, headache, nasal congestion, sore throat, cough, chest pain, shortness of breath, abdominal pain, nausea, vomiting, dysuria, hematuria, frequency, Physical Exam Physical Exam: General: Resting comfortably in his hospital bed. Yelling out constantly "nurse nurse". appears chronically ill but not toxic Neck: No JVD. Negative hepatojugular reflex Cardiac: [place] in a NSR with CVR Lungs:speaking and breathing comfortably on ambient air. Diminished bilaterally without W/R/R Abdomen: Normoactive X4. Soft and nontender in all quadrants. Extremities: large wounds on bilateral posterior legs (mid calf)--right much worse than left. Copious amount of mucopurulent drainage. Neuro:Awake. orneted to place, person and time. Not oriented to situation. Cranial nerves II through XII are grossly intact no focal neuro deficits Skin:see above Results & Data Results & Data ([facility]) Vital Signs (Past 12 Hours) Vital Signs Temp Pulse Resp BP BP Pulse Ox 02/01/21 15:32 36.6 C 70 16 157/83 H 92 02/01/21 06:59 36.6 C 75 18 143/86 H 92 Laboratory Results 02/01/21 08:39 02/01/21 08:39 PG Care Time/CCT Total # of Minutes Spent Total Time Spent with Patient: Total time spent is greater than 50% in coordination of care (as documented) at patient's floor/unit and/or counseling patient: Coding Level of Care Code 19006 Subseq Hosp Care Lvl 3 Diagnoses Cellulitis of leg L03.115 Laterality: right Pleural effusion J90 Dementia F03.90 Atrial fibrillation I48.91 (1) Cellulitis of leg Laterality: right Qualified Code(s): L03.115 - Cellulitis of right lower limb
[2021-02-01] MEDS: THIAMINE HCL 100 MG TAB PO SCH (20:40)
[2021-02-02] MEDS: PIPERACILLIN/TAZOBACTAM 3.375 GM in DEXTROSE 5% 100 ML IV SCH ×4 (00:10→23:02)
[2021-02-02] MEDS: LORazepam 0.5 MG TAB PO PRN ×2 (04:17→18:44)
[2021-02-02 06:18] LABS: Basophils # (auto) 0.02 K/uL (0-0.2); Basophils % (auto) 0.2 %; Eosinophils # (auto) 0.03 K/uL (0-0.5); Eosinophils % (auto) 0.3 %; Hematocrit (blood only) 30.4 % (42-52); Hemoglobin 9.6 g/dL (14.0-18.0); Immature Granulocytes # (auto) 0.04 K/uL (0.00-0.02); Immature Granulocytes % (auto) 0.4 %; Lymphocytes # (auto) 1.26 K/uL (1.2-3.4); Mean Corpuscular Hemoglobin 28.3 pg (25-34); Mean Corpuscular Hgb Conc 31.6 g/dL (32-36); Mean Corpuscular Volume 89.7 fL (80-100); Mean Platelet Volume 9.5 fL (7.4-10.4); Monocytes # (auto) 1.32 K/uL (0.11-0.59); Monocytes % (auto) 14.6 %; Neutrophils # (auto) 6.36 K/uL (1.4-6.5); Neutrophils % (auto) 70.5 %; Nucleated RBC # (auto) 0.05 K/uL (0-0); Nucleated RBC % (auto) 0.6 %; Platelet Count 462 K/uL (130-400); RDW Coefficient of Variation 18.9 % (11.5-14.5); RDW Standard Deviation 61.5 fL (36.4-46.3); Red Blood Count 3.39 M/uL (4.7-6.1); White Blood Count 9.03 K/uL (4.8-10.8)
[2021-02-02 06:26] LABS: INR 2.7 (0.9-1.1); Prothrombin Time 25.3 Seconds (9.0-12.0)
[2021-02-02 06:56] LABS: BUN Creatinine Ratio 26.3 (10-20); Calcium 7.8 mg/dl (8.5-10.1); Creatinine Clr Calc Pharmacy 74.8 ml/min; Est GFR (Non-African American) 86.3 ml/min; Magnesium 1.7 mg/dl (1.8-2.4); Potassium 3.4 mmol/L (3.5-5.1)
[2021-02-02] MEDS: PANTOprazole 40 MG TAB PO SCH (08:36)
[2021-02-02] MEDS: FINASTERIDE 5 MG TAB PO SCH (08:36)
[2021-02-02] MEDS: ATORVASTATIN 40 MG TAB PO SCH (08:36)
[2021-02-02] MEDS: ATENOLOL 25 MG TABLET PO SCH (08:36)
[2021-02-02] MEDS: INSULIN ASPART 100 UNITS/ML 3 ML PEN SC SCH ×4 (09:51→21:07)
[2021-02-02] MEDS ORDERED: PHYTONADIONE 5 MG TAB PO ONE (12:51)
[2021-02-02] MEDS ORDERED: POTASSIUM CHLORIDE CRTAB 20 MEQ TABCR PO ONE (12:54)
[2021-02-02] MEDS ORDERED: MAGNESIUM OXIDE 400 MG TAB PO ONE (13:30)
--- NOTE | 2021-02-02 13:50 | Surgery Consultation ---
Date of Consultation February 02, 2021 Assessment & Plan (1) Decubitus ulcer: Patient has a relatively large necrotic ulcer of the left posterior proximal leg Extremely painful to inspection with necrotic eschar MRI shows this to the gastrocnemius muscle To promote healing it would need to be debrided which will be a large deep wound requiring a wound VAC We will not be able to done under local and may be difficult with sedation Patient is a very high risk medical patient with a very large right pleural effusion I very much doubt he is going to significantly improve in the next weeks Depending on the plan we may proceed in 48 to 72 hours but not this weekend We will obtain an anesthesia consult History of Present Illness Attending Physician: Darryl Medrano MD History of Present Illness 89-year-old male with left lower extremity posterior calf lesion-likely a pressure ulcer Abnormal MRI with involvement of the medial head of the gastrocnemius muscle and lower extremity edema Recent long stay at [facility] rehab also with a very large right pleural effusion History of congestive heart failure atrial fibrillation on Coumadin diabetes hypertension coronary disease Coumadin has been held Allergies Allergy/AdvReac Type Severity Reaction Status Date / Time adhesive Allergy Unknown SKIN Verified 01/31/21 14:29 IRRITATION diphenhydramine AdvReac Unknown PROSTATE Verified 01/31/21 14:29 PROBLEMS Latex Allergy Unknown Rash Uncoded 01/31/21 14:29 all antihistamines AdvReac Severe prostate Uncoded 01/31/21 14:29 problems Home Medications Medication Instructions Recorded Confirmed Type cholecalciferol (vitamin D3) 25 1,000 unit PO QPM 12/02/18 01/31/21 History mcg (1,000 unit) capsule (Vitamin D3) vitamin E 100 unit capsule 400 unit PO QPM 12/02/18 01/31/21 History clopidogrel 75 mg tablet 75 mg PO QAM 12/16/18 01/31/21 History finasteride 5 mg tablet 5 mg PO QAM 01/06/19 01/31/21 History nitroglycerin 0.4 mg sublingual 0.4 mg SL Q5M PRN #20 tab 04/07/19 01/31/21 Rx tablet (Nitrostat) atenolol 50 mg tablet 50 mg PO HS tab 02/21/20 01/31/21 History acyclovir 200 mg capsule 200 mg PO UD PRN 01/01/21 01/31/21 History metformin 1,000 mg tablet 1,000 mg PO BID 01/01/21 01/31/21 History thiamine HCl (vitamin B1) 100 mg 100 mg PO QPM 01/01/21 01/31/21 History tablet (Vitamin B-1) atorvastatin 40 mg tablet 40 mg PO QAM 01/16/21 01/31/21 History pantoprazole 40 mg tablet,delayed 40 mg PO DAILYBB 01/16/21 01/31/21 History release trazodone 50 mg tablet 100 mg PO HS PRN 01/16/21 01/31/21 History cephalexin 500 mg capsule 500 mg PO BID 01/31/21 01/31/21 History cyanocobalamin (vitamin B-12) 1,000 mcg IM MONTHLY 01/31/21 01/31/21 History 1,000 mcg/mL injection solution quetiapine 25 mg tablet 0 mg PO DIRECTED 01/31/21 01/31/21 History warfarin 2 mg tablet 0 mg PO DIRECTED 01/31/21 01/31/21 History Patient History Medical History (Updated 02/02/21 @ 15:11 by Chris Mendiola MD, FACS) Abnormal weight loss Aortic stenosis Benign prostate hyperplasia BPH with obstruction/lower urinary tract symptoms Carotid stenosis, non-symptomatic (12/27/18) 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 (12/10/18) DM (diabetes mellitus) Dyslipidemia, goal to be determined (06/26/09) Dyspnea on exertion Follicular lymphoma (~04/2014) GERD (gastroesophageal reflux disease) (12/10/18) Heart failure with preserved ejection fraction (12/27/18) High cholesterol HTN (hypertension) Hyperlipidemia (12/10/18) 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 Memory difficulty Orthostatic hypotension Vitamin B12 deficiency Surgical History History of cholecystectomy History of colon surgery History of colostomy temporary History of cystoscopy History of hernia repair History of prostate surgery laser vaporization with transurethral resection of prostate S/P cardiac cath 02/08 TAVAR mago procedure 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) Family History Other No family history of adverse response to anesthesia No family history of bleeding disorder Social History Smoking Status: Former smoker Second Hand Exposure: Yes (mother & father); Do You Dip or Chew Tobacco: No; Hx Alcohol Use: Yes (not within 30 days) Alcohol type: beer Hx Substance Use: No Preferred Language: [place] Communication Ability: Effective Sales Agent Financial Report Service Required: No Beliefs That Will Affect Care: None marital status: Current Living Situation: Spouse current occupation: Retired Other Information That Helps Us Care for You: No Feels Safe at Home: Yes Seatbelt Use: always Assistive Devices: Walker Review of Systems Review of Systems: All systems reviewed & are unremarkable except as noted in HPI & below Physical Exam Constitutional: + ill appearing; no acute distress Eyes: + anicteric sclerae Respiratory: no respiratory distress Cardiovascular: Rate/Rhythm: + irregularly irregular Gastrointestinal (Abdomen): Inspection/Auscultation: abdomen not distended Skin: no rashes Results & Data ([facility]) Vital Signs (Past 12 Hours) Vital Signs Temp Pulse Resp BP Pulse Ox 02/02/21 07:45 36.4 C L 90 18 144/84 H 96 PG Care Time/CCT Total # of Minutes Spent Total Time Spent with Patient: Total time spent is greater than 50% in coordination of care (as documented) at patient's floor/unit and/or counseling patient: Coding Level of Care Code 00461 Initial Inpt Care Lvl 3 Diagnoses Decubitus ulcer L89.90
--- NOTE | 2021-02-02 14:00 | Pulmonary Consultation ---
Date of Consultation February 02, 2021 Assessment & Plan (1) Pleural effusion: 89-year-old male with a history of diastolic CHF, dementia, atrial fibrillation on warfarin and coronary artery disease who is currently in the hospital due to lower extremity cellulitis. Bilateral pleural effusions, right greater than left: Suspect this is related to diastolic CHF and low oncotic pressure. At the time of my physical exam, the fire sprinkler service technician was performing an echocardiogram. I was able to use the ultrasound to take a look at the bilateral hemithorax to evaluate for pleural effusion. Minimal left pleural effusion was seen. Right hemithorax demonstrated a small to moderate sized right free-flowing pleural effusion. Interstitial B-lines were seen as well suggestive of pulmonary edema. Continue with IV diuretic therapy. Doubt infectious etiology at this time. We will hold off on thoracentesis at this time given his advanced dementia and reasonable respiratory status. He does not appear to be short of breath. Can consider thoracentesis if respiratory status worsens. INR will need to be below 1.8 for consideration of thoracentesis. Thank you for the consultation. Please call with questions. (2) Atrial fibrillation: (3) Dementia: History of Present Illness Reason for Consultation: Bilateral pleural effusions Attending Physician: Darryl Medrano MD History of Present Illness 89-year-old male admitted to the hospital due to lethargy and weakness. He has a history of advanced dementia. He also has a history of hypertension, hyperlipidemia, diabetes mellitus, atrial fibrillation, coronary artery disease and aortic stenosis. He is currently on warfarin for A. fib. There was concern of pneumonia and he was started on antibiotics. He also has lower extremity cellulitis. CT of the chest was completed which demonstrated bilateral effusions, right greater than left. Atelectasis was seen in the right likely due to compression. Patient is currently saturating 96% on room air. He does not appear short of breath. Denies chest pain. No recent fevers or chills. History from the patient somewhat limited due to dementia. I was able to review the chart and discussed with the patient's hospitalist. Allergies Allergy/AdvReac Type Severity Reaction Status Date / Time adhesive Allergy Unknown SKIN Verified 01/31/21 14:29 IRRITATION diphenhydramine AdvReac Unknown PROSTATE Verified 01/31/21 14:29 PROBLEMS Latex Allergy Unknown Rash Uncoded 01/31/21 14:29 all antihistamines AdvReac Severe prostate Uncoded 01/31/21 14:29 problems Home Medications Medication Instructions Recorded Confirmed Type cholecalciferol (vitamin D3) 25 1,000 unit PO QPM 12/02/18 01/31/21 History mcg (1,000 unit) capsule (Vitamin D3) vitamin E 100 unit capsule 400 unit PO QPM 12/02/18 01/31/21 History clopidogrel 75 mg tablet 75 mg PO QAM 12/16/18 01/31/21 History finasteride 5 mg tablet 5 mg PO QAM 01/06/19 01/31/21 History nitroglycerin 0.4 mg sublingual 0.4 mg SL Q5M PRN #20 tab 04/07/19 01/31/21 Rx tablet (Nitrostat) atenolol 50 mg tablet 50 mg PO HS tab 02/21/20 01/31/21 History acyclovir 200 mg capsule 200 mg PO UD PRN 01/01/21 01/31/21 History metformin 1,000 mg tablet 1,000 mg PO BID 01/01/21 01/31/21 History thiamine HCl (vitamin B1) 100 mg 100 mg PO QPM 01/01/21 01/31/21 History tablet (Vitamin B-1) atorvastatin 40 mg tablet 40 mg PO QAM 01/16/21 01/31/21 History pantoprazole 40 mg tablet,delayed 40 mg PO DAILYBB 01/16/21 01/31/21 History release trazodone 50 mg tablet 100 mg PO HS PRN 01/16/21 01/31/21 History cephalexin 500 mg capsule 500 mg PO BID 01/31/21 01/31/21 History cyanocobalamin (vitamin B-12) 1,000 mcg IM MONTHLY 01/31/21 01/31/21 History 1,000 mcg/mL injection solution quetiapine 25 mg tablet 0 mg PO DIRECTED 01/31/21 01/31/21 History warfarin 2 mg tablet 0 mg PO DIRECTED 01/31/21 01/31/21 History Patient History Medical History (Updated 01/31/21 @ 13:49 by Adalid Peck MD) Abnormal weight loss Aortic stenosis Benign prostate hyperplasia BPH with obstruction/lower urinary tract symptoms Carotid stenosis, non-symptomatic (12/27/18) 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 (12/10/18) DM (diabetes mellitus) Dyslipidemia, goal to be determined (06/26/09) Dyspnea on exertion Follicular lymphoma (~04/2014) GERD (gastroesophageal reflux disease) (12/10/18) Heart failure with preserved ejection fraction (12/27/18) High cholesterol HTN (hypertension) Hyperlipidemia (12/10/18) 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 Memory difficulty Orthostatic hypotension Vitamin B12 deficiency Surgical History History of cholecystectomy History of colon surgery History of colostomy temporary History of cystoscopy History of hernia repair History of prostate surgery laser vaporization with transurethral resection of prostate S/P cardiac cath 02/08 TAVAR mago procedure 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) Family History Other No family history of adverse response to anesthesia No family history of bleeding disorder Social History Smoking Status: Former smoker Second Hand Exposure: Yes (mother & father); Do You Dip or Chew Tobacco: No; Hx Alcohol Use: Yes (not within 30 days) Alcohol type: beer Hx Substance Use: No Preferred Language: [place] Communication Ability: Effective Dining Room Attendant Required: No Beliefs That Will Affect Care: None marital status: Current Living Situation: Spouse current occupation: Retired Other Information That Helps Us Care for You: No Feels Safe at Home: Yes Seatbelt Use: always Assistive Devices: Walker Review of Systems Review of Systems: Largely unobtainable due to dementia and lethargy. Does not appear to be in significant distress. He shook his head no when asked if he had chest pain or shortness of breath. Physical Exam Physical Exam: Constitutional: Elderly and frail appearing male no apparent distress. Eyes: Pupils are equal round and reactive to light. Conjunctivae are normal. Anicteric sclera. Ears nose, mouth and throat: Mallampati class 2. Normal posterior oropharynx. Uvula is midline. Neck: Trachea is midline. Visual inspection is normal. Respiratory: Mildly diminished right lung base. No tachypnea. Cardiovascular: Regular rate and rhythm. No significant edema or murmurs. Gastrointestinal: Normal bowel sounds, soft, nontender and nondistended. No hepatosplenomegaly noted. Musculoskeletal: No cyanosis. Patient is able to move all extremities. Strength is 5 out of 5 in the upper and lower extremities. Skin: No rashes, warm dry and intact. Neurologic: No obvious focal neurological deficits seen. Psychiatric: Somewhat disoriented. Not appear to be distressed. Mildly anxious. Results & Data Results & Data ([facility]) Vital Signs (Past 12 Hours) Vital Signs Temp Pulse Resp BP Pulse Ox 02/02/21 07:45 97.5 F L 90 18 144/84 H 96 Vital signs, labs and imaging personally reviewed PG Care Time/CCT Total # of Minutes Spent Total Time Spent with Patient: Total time spent is greater than 50% in coordination of care (as documented) at patient's floor/unit and/or counseling patient: Coding Level of Care Code 76927 Initial Inpt Care Lvl 3 Diagnoses Pleural effusion J90 Atrial fibrillation I48.91 Dementia F03.90
[2021-02-02] MEDS ORDERED: POTASSIUM CHLORIDE CRTAB 20 MEQ TABCR PO SCH (15:00)
--- NOTE | 2021-02-02 16:00 | Hospitalist Progress Note ---
Date of Service February 02, 2021 Assessment & Plan (1) Cellulitis of leg: Plan: * Cellulitis with impressive wound on bilateral legs (L>R) * MRI suggesting myositis/muscle involvement * I have reached out to general surgery as patient warrants debridement at this time * Patient on chronic anticoagulation therapy for his atrial fibrillation. I did review an old echocardiogram and he is status post TAVR (bovine)okay to hold anticoagulation therapy * Continue Zosyn. Wound culture showing preliminary growth of Pseudomonas. Zosyn should provide adequate coverage. Will tailor antibiotic therapy based on final culture data * Consult wound nurseappreciate recommendations * Will obtain an arterial duplex to assess flow and consult vascular if needed (2) Pleural effusion: Plan: * Does not appear to be symptomatic * Opacity suggested in the right lower lobe. * Pleural effusion likely multifactorial but patient is asymptomatic. There does seem to be a component of pulmonary vascular congestion but also pneumonia may be potentiating this * CT does not show an obvious mass * Will continue Lasix X2 additional doses * Pulmonology consulted and case discussed with Dr. Norris. Benefit of thoracentesis does not outweigh the risk with his chronic comorbidities and anticoagulation therapy given the fact that patient is asymptomatic. (3) Dementia: Plan: * Baseline. at bedside and confirmed (4) Atrial fibrillation: Plan: * Currently in a normal sinus rhythm with controlled ventricular rate. * Coumadin on hold given need for I&D * Will give vitamin K to potentiate downtrending of INR/reversal of Coumadin given need for debridement (5) Electrolyte abnormality: Plan: -Hypomagnesemia/hypokalemiareplace Plan: Plan discussed with patient's son (Bruno) and Plan of care discussed with Dr. Medrano Admission and Anticipated Discharge Date Admission Date: January 31, 2021 Subjective Patient seen on daily rounds today. Limited historian. Laying in bed and limited in his cooperation with interview but answers all questions appropriately. Still with pain of the wounds on his bilateral legs. Denies fevers, chills, chest pain, shortness of breath, orthopnea, PND, abdominal pain, nausea, vomiting, GI/ symptomatology. 1 dose of IV Lasix given yesterday. Fluid balance is +612; however patient inc ontinent thus not accurate. Remains on Zosyn for left leg wound and ? PNA with associated effusion. prelim culture data showing pseudomonas Review of Systems Review of Systems: Question reliability Patient complains of pain in his left leg, GI/ symptoms but denies fevers, chills, chest pain, shortness of breath, abdominal pain, nausea, vomiting Physical Exam Physical Exam: General: Resting comfortably in his hospital bed. Somnolent but arousable. NAD. Neck: No JVD. Negative hepatojugular reflex Cardiac: Currently in a normal sinus rhythm with controlled ventricular rate Lungs: Speaking full sentences and breathing comfortably on ambient air. Diminished breath sounds throughout (primarily in the left) without W/R/R Abdomen: Normoactive X4. Soft and nontender in all quadrants. Extremities: No peripheral clubbing cyanosis or edema Neuro: A&O X4 cranial nerves II through XII are grossly intact no focal neuro deficits Skin: Left leg wound involving the central calf with persistent mucopurulent dr ainage. Surrounding skin is not erythematous or edematous. Distal pulse is diminished. Results & Data Results & Data ([facility]) Vital Signs (Past 12 Hours) Vital Signs Temp Pulse Resp BP Pulse Ox 02/02/21 07:45 36.4 C L 90 18 144/84 H 96 Laboratory Results 02/02/21 06:06 02/02/21 06:06 Diagnostic Findings Gram Stain Final 02/01/21-1123 Gram Stain Result Many WBCs Seen Many Gram Negative Bacilli Surface Wound Culture Preliminary 02/02/21-0757 Organism 1 Probable Pseudomonas species Quantity Many Sens Sensitivities to Follow PG Care Time/CCT Total # of Minutes Spent Total Time Spent with Patient: Total time spent is greater than 50% in coordination of care (as documented) at patient's floor/unit and/or counseling patient: 90 minutes including time spent with patient, discussion with family, discussion with general surgery/pulmonology/attending Coding [place] [address] Subseq Hosp Care Lvl 3 Patient Type Established Medical Decision Making High Complexity Diagnoses Cellulitis of leg L03.115 Laterality: right Pleural effusion J90 Dementia F03.90 Atrial fibrillation I48.91 Electrolyte abnormality E87.8 Time Spent (min) 90 (1) Cellulitis of leg Laterality: right Qualified Code(s): L03.115 - Cellulitis of right lower limb
--- NOTE | 2021-02-02 16:23 | Ultrasound Report ---
BILATERAL LOWER EXTREMITY ARTERIAL DOPPLER ULTRASOUND CLINICAL HISTORY: assess flow COMPARISON STUDY: No previous studies for comparison. TECHNIQUE: Grayscale, color and duplex Doppler sonography of the arterial systems of both lower extre me is was performed. Ankle to brachial indices could not be obtained due to lower extremity pain. FINDINGS: There is extensive atherosclerotic plaque within the bilateral lower extremities. There is monophasic flow within left common femoral artery which raises the possibility of inflow disease. No elevated velocities were identified within the left lower extremity. There is monophasic flow within the left superficial femoral artery. The left popliteal artery could not be evaluated due to signific ant pain. Left posterior tibial artery is likely occluded. There is also suspected occlusion of the l eft peroneal artery. There is monophasic flow within the left anterior tibial artery although it is m arkedly dampened. There is also monophasic flow within the left dorsalis pedis. There is biphasic flow within the right common femoral artery. The distal right superficial femoral a rtery and popliteal artery could not be assessed due to pain. The right posterior tibial artery is li oliva occluded. There is monophasic flow within the right anterior tibial or dorsalis pedis vessels. T here is monophasic flow within the right peroneal artery. IMPRESSION: 1. Technically difficult exam due to lower extremity pain which precluded full evaluation. 2. Extensive atherosclerotic plaque within the bilateral lower extremities, greater on the left. Occl uded left posterior tibial and peroneal arteries with monophasic dampened flow within the left anteri or tibial and dorsalis pedis. 3. Occluded right posterior tibial artery. 4. Monophasic flow within the left common femoral artery which raises the possibility of inflow disea se. ACT 112: Negative or not required by law. Electronically signed by: Vaibhav Bui M.D. 02/02/2021 4:21 PM
[2021-02-02] MEDS: FUROSEMIDE 20 MG in SYRINGE 0 ML IV SCH ×2 (16:46→21:07)
[2021-02-02] MEDS: THIAMINE HCL 100 MG TAB PO SCH (21:07)
[2021-02-02] MEDS: traZODone HCL 50 MG TAB PO PRN (21:07)
[2021-02-03 06:52] LABS: Basophils # (auto) 0.01 K/uL (0-0.2); Basophils % (auto) 0.1 %; Eosinophils # (auto) 0.09 K/uL (0-0.5); Eosinophils % (auto) 0.9 %; Hematocrit (blood only) 29.9 % (42-52); Hemoglobin 9.6 g/dL (14.0-18.0); Immature Granulocytes # (auto) 0.04 K/uL (0.00-0.02); Immature Granulocytes % (auto) 0.4 %; Lymphocytes # (auto) 1.08 K/uL (1.2-3.4); Lymphocytes % (auto) 11.1 %; Mean Corpuscular Hemoglobin 28.6 pg (25-34); Mean Corpuscular Hgb Conc 32.1 g/dL (32-36); Mean Platelet Volume 9.3 fL (7.4-10.4); Monocytes # (auto) 1.39 K/uL (0.11-0.59); Monocytes % (auto) 14.3 %; Neutrophils # (auto) 7.12 K/uL (1.4-6.5); Neutrophils % (auto) 73.2 %; Platelet Count 436 K/uL (130-400); RDW Coefficient of Variation 18.9 % (11.5-14.5); RDW Standard Deviation 61.3 fL (36.4-46.3); Red Blood Count 3.36 M/uL (4.7-6.1); White Blood Count 9.73 K/uL (4.8-10.8)
[2021-02-03 07:00] LABS: Prothrombin Time 18.8 Seconds (9.0-12.0)
[2021-02-03 07:20] LABS: BUN Creatinine Ratio 28.6 (10-20); Calcium 7.7 mg/dl (8.5-10.1); Creatinine Clr Calc Pharmacy 77.2 ml/min; Est GFR (African American) 101.3 ml/min; Est GFR (Non-African American) 87.4 ml/min; Potassium 3.4 mmol/L (3.5-5.1)
--- NOTE | 2021-02-03 07:27 | XRay Report ---
XR chest 1V portable CLINICAL HISTORY: post diuresis COMPARISON STUDY: Chest radiograph and chest CT February 01, 2021. FINDINGS: There is no pneumothorax. Cardiomegaly is again noted. Moderate right and small left pleura l effusions are present. There is persistent right basilar opacity. There is no radiographic evidence for pulmonary edema. IMPRESSION: 1. Persistent moderate right and small left pleural effusions with extensive right lower lung opacity . Continued radiographic follow-up is recommended. 2. Cardiomegaly. ACT 112: Negative or not required by law. Electronically signed by: Vaibhav Bui M.D. 02/03/2021 7:26 AM
--- NOTE | 2021-02-03 07:34 | Surgery Progress Note ---
Date of Service February 03, 2021 Assessment & Plan (1) Decubitus ulcer: Plan: Patient with necrotic ulcer posterior left leg It appears to me he has having a gradual deterioration with his dementia and inability to get out of bed History of congestive heart failure with large right pleural effusion Significant surgical intervention with wide debridement and then wound VAC will not improve his quality of life Anesthesia consult is pending, he is obviously high risk I do not think the ulcer is causing significant sepsis-we are considering vascular evaluation May need to consider palliative care evaluation Likely the earliest I would proceed with surgery would be Thursday-after all input available Admission and Anticipated Discharge Date Admission Date: January 31, 2021 Results & Data ([facility]) Vital Signs (Past 12 Hours) Vital Signs Temp Pulse Resp BP Pulse Ox 02/02/21 23:35 36.8 C 70 18 127/72 92 PG Care Time/CCT Total # of Minutes Spent Total Time Spent with Patient: Total time spent is greater than 50% in coordination of care (as documented) at patient's floor/unit and/or counseling patient: Coding Level of Care Code 45486 Inpt Consult Level 3 Diagnoses Decubitus ulcer L89.90
[2021-02-03] MEDS: PIPERACILLIN/TAZOBACTAM 3.375 GM in DEXTROSE 5% 100 ML IV SCH ×3 (07:59→23:19)
[2021-02-03] MEDS: ACETAMINOPHEN 325 MG TAB PO PRN (08:04)
[2021-02-03] MEDS: FINASTERIDE 5 MG TAB PO SCH (08:05)
[2021-02-03] MEDS: LORazepam 0.5 MG TAB PO PRN ×2 (08:05→21:16)
[2021-02-03] MEDS: ATORVASTATIN 40 MG TAB PO SCH (08:05)
[2021-02-03] MEDS: MAGNESIUM OXIDE 400 MG TAB PO SCH (08:05)
[2021-02-03] MEDS: PANTOprazole 40 MG TAB PO SCH (08:07)
[2021-02-03] MEDS: ATENOLOL 25 MG TABLET PO SCH (08:07)
[2021-02-03] MEDS: INSULIN ASPART 100 UNITS/ML 3 ML PEN SC SCH ×4 (10:37→21:13)
[2021-02-03] MEDS ORDERED: HYDROCODONE/ACETAMOPHEN 5/325MG TAB PO PRN (11:07)
--- NOTE | 2021-02-03 12:58 | Palliative Care Consultation ---
Date of Consultation February 03, 2021 Assessment & Plan (1) Pain: Generalized and localized to LLE with cellulitis. Agree with starting with hydrocodone/APAP. Discussed sedation and confusion risks with family. They would prefer that he is comfortable, even if sedated. His daughter reports that he had hydromorphone in the ER which was effective for his pain and did not seem to cause sedation. Will monitor and adjust appropriately. (2) Palliative care encounter: I met with Mrs. Yancey and her daughter at bedside and with her son, Bruno, on speaker phone. They understand that his prognosis is poor and would like the focus of his care to be comfort directed. We talked about adjusting medications that are not directly contributing to his comfort. They would like to continue antibiotics at this time and understand that if antibiotics are stopped, Bob may decline quickly. There are two daughters who are out of state who will be arriving in the next few days. We did discuss his code status as he is a full code. Mrs. Yancey is adamant that she would want him to be DNR. "We've lived our lives and I will be ok". Code status changed to reflect this. We also talked about plan of care moving forward. They are not able to care for him at home. We discussed SNF but they are concerned about limitations for visiting hours. We discussed more flexible visiting hours at most facilities for comfort care patients. They will talk with case management about this further. Palliative care will follow. (3) Cellulitis of leg: Laterality: right Qualified Code(s): L03.115 - Cellulitis of right lower limb (4) Heart failure with preserved ejection fraction: (5) Benign prostate hyperplasia: (6) DM (diabetes mellitus): (7) Follicular lymphoma: (8) Peripheral vascular disease: History of Present Illness Reason for Consultation: goals of care Requesting Physician: CHRISTEL Guidry Attending Physician: Darryl Medrano MD History of Present Illness 89 yo with dementia, diabetes, CAD, HFpEF and peripheral vascular disease. He has chronic cellulitis of his lower extremity and had been discharged to home after discharge from [facility]. He had been home for one day and was admitted with weakness and lethargy. He is partially awake at the time of visit and subsequent family meeting though he frequently falls asleep during conversation. He has been complaining of pain "all over" but particularly in his left leg. He grimaces and calls out with movement. He does appear to be comfortable at rest and denies pain at rest in bed. Per RN his appetite has been good and he was able to sit in the chair for lunch. Allergies Allergy/AdvReac Type Severity Reaction Status Date / Time adhesive Allergy Unknown SKIN Verified 01/31/21 14:29 IRRITATION diphenhydramine AdvReac Unknown PROSTATE Verified 01/31/21 14:29 PROBLEMS Latex Allergy Unknown Rash Uncoded 01/31/21 14:29 all antihistamines AdvReac Severe prostate Uncoded 01/31/21 14:29 problems Home Medications Medication Instructions Recorded Confirmed Type cholecalciferol (vitamin D3) 25 1,000 unit PO QPM 12/02/18 01/31/21 History mcg (1,000 unit) capsule (Vitamin D3) vitamin E 100 unit capsule 400 unit PO QPM 12/02/18 01/31/21 History clopidogrel 75 mg tablet 75 mg PO QAM 12/16/18 01/31/21 History finasteride 5 mg tablet 5 mg PO QAM 01/06/19 01/31/21 History nitroglycerin 0.4 mg sublingual 0.4 mg SL Q5M PRN #20 tab 04/07/19 01/31/21 Rx tablet (Nitrostat) atenolol 50 mg tablet 50 mg PO HS tab 02/21/20 01/31/21 History acyclovir 200 mg capsule 200 mg PO UD PRN 01/01/21 01/31/21 History metformin 1,000 mg tablet 1,000 mg PO BID 01/01/21 01/31/21 History thiamine HCl (vitamin B1) 100 mg 100 mg PO QPM 01/01/21 01/31/21 History tablet (Vitamin B-1) atorvastatin 40 mg tablet 40 mg PO QAM 01/16/21 01/31/21 History pantoprazole 40 mg tablet,delayed 40 mg PO DAILYBB 01/16/21 01/31/21 History release trazodone 50 mg tablet 100 mg PO HS PRN 01/16/21 01/31/21 History cephalexin 500 mg capsule 500 mg PO BID 01/31/21 01/31/21 History cyanocobalamin (vitamin B-12) 1,000 mcg IM MONTHLY 01/31/21 01/31/21 History 1,000 mcg/mL injection solution quetiapine 25 mg tablet 0 mg PO DIRECTED 01/31/21 01/31/21 History warfarin 2 mg tablet 0 mg PO DIRECTED 01/31/21 01/31/21 History Patient History Medical History (Updated 02/03/21 @ 15:52 by Sabra Dallas MD) Abnormal weight loss Aortic stenosis Benign prostate hyperplasia BPH with obstruction/lower urinary tract symptoms Carotid stenosis, non-symptomatic (12/27/18) 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 (12/10/18) DM (diabetes mellitus) Dyslipidemia, goal to be determined (06/26/09) Dyspnea on exertion Follicular lymphoma (~04/2014) GERD (gastroesophageal reflux disease) (12/10/18) Heart failure with preserved ejection fraction (12/27/18) High cholesterol HTN (hypertension) Hyperlipidemia (12/10/18) 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 Memory difficulty Orthostatic hypotension Vitamin B12 deficiency Surgical History History of cholecystectomy History of colon surgery History of colostomy temporary History of cystoscopy History of hernia repair History of prostate surgery laser vaporization with transurethral resection of prostate S/P cardiac cath 02/08 TAVAR mago procedure 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) Family History Other No family history of adverse response to anesthesia No family history of bleeding disorder Social History Smoking Status: Former smoker Second Hand Exposure: Yes (mother & father); Do You Dip or Chew Tobacco: No; Hx Alcohol Use: Yes (not within 30 days) Alcohol type: beer Hx Substance Use: No Preferred Language: Urdu Communication Ability: Effective It Business Process Architect Required: No Beliefs That Will Affect Care: None marital status: Current Living Situation: Spouse current occupation: Retired Other Information That Helps Us Care for You: No Feels Safe at Home: Yes Seatbelt Use: always Assistive Devices: Walker Review of Systems Review of Systems: [place] Symptom Assessment Scale Pain 2/3 Dyspnea 1/3 Fatigue 2/3 Drowsiness 1/3 Nausea 0/3 Anxiety 1/3 Palliative Performance Score 40% Physical Exam Constitutional: + ill appearing ENMT: Mouth: oral mucous membranes not dry Respiratory: + uses accessory muscles Cardiovascular: Rate/Rhythm: regular rate and regular rhythm Gastrointestinal (Abdomen): distended, nontender Musculoskeletal: Extremities: + muscle atrophy Neurologic: + confused Results & Data ([facility]) Vital Signs (Past 12 Hours) Vital Signs Temp Pulse Resp BP Pulse Ox 02/03/21 08:09 98.2 F 59 L 16 139/81 95 PG Care Time/CCT Total # of Minutes Spent Total Time Spent: 75 Total Time Spent with Patient: Total time spent is greater than 50% in coordination of care (as documented) at patient's floor/unit and/or counseling patient:goals of care, code status, symptom management, disposition, prognosis, family education and support. Coding Level of Care Code 97087 Initial Inpt Care Lvl 3 Diagnoses Cellulitis of leg L03.115 Laterality: right Heart failure with preserved ejection fraction I50.30 Benign prostate hyperplasia N40.0 DM (diabetes mellitus) E11.9 Follicular lymphoma C82.90 Peripheral vascular disease I73.9 Pain R52 Palliative care encounter Z51.5
[2021-02-03] MEDS: FUROSEMIDE 20 MG in SYRINGE 0 ML IV SCH ×2 (13:35→17:19)
[2021-02-03] MEDS: POTASSIUM CHLORIDE CRTAB 20 MEQ TABCR PO SCH ×2 (13:37→17:19)
[2021-02-03] MEDS: HYDROcodone/ACETAMINOPHEN 10/325 TAB PO PRN (14:40)
--- NOTE | 2021-02-03 17:36 | Hospitalist Progress Note ---
Date of Service February 03, 2021 Assessment & Plan (1) Cellulitis of leg: Plan: * Cellulitis with impressive wound on bilateral legs (L>R) * MRI suggesting myositis/muscle involvement * Unfortunately, arterial Doppler shows advanced PAD which would ultimately pose a problem for wound healing. Vascular surgery unavailable until 02/10. Offered transfer for evaluation by vascular as general surgery can do I&D; however, wound will not heal without adequate flow. In addition, family aware that the patient is a very high surgical risk given this questionable opacities likely consistent with pneumonia and associated pleural effusion (likely due to pneumonia and CHF). Fortunately, patient's not requiring oxygen and does not seem to be overly symptomatic but would be a surgical risk. * Family has decided to pursue palliative care to focus on quality of life. Given the risk that patient may end up with an amputation and/or a very large wound and wound VACthey are aware that he will likely be bedridden and continue to decline. They do not want to pursue anything aggressive. I have consulted Dr. Dallas for palliative care. * Will continue 14 days of antibiotic therapy (more so for the pneumonia). Family aware that this will not improve the leg wound. (2) Pleural effusion: Plan: * Does not appear to be symptomatic * Opacity suggested in the right lower lobe. * Pleural effusion likely multifactorial but patient is asymptomatic. There does seem to be a component of pulmonary vascular congestion but also pneumonia may be potentiating this * CT does not show an obvious mass * Patient has had 2 doses of IV Lasix thus far. Does have a history of CHF with no Lasix on home med list. Will give additional dose of Lasix today and start oral Lasix tomorrow. * Echocardiogram ordered showing preserved EF of 55 to 60%. 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 Given the fact that the patient is asymptomatic and has significant comorbidities, pulmonology advised against thoracentesis for now. (3) Dementia: Plan: * Baseline. at bedside and confirmed (4) Atrial fibrillation: Plan: * Currently in a normal sinus rhythm with controlled ventricular rate. * Coumadin was on hold initially as patient thought to need I&D. Patient has had continued decline/deconditioning and is a very high fall risk. Per nursing staff, max assist of 2 and unsteady. Benefit of continued anticoagulation therapy does not outweigh the risk (5) Electrolyte abnormality: Plan: -Hypomagnesemia/hypokalemiamagnesium level now normal with replacement. Continue to replace potassium Plan: Plan discussed with patient's son (Bruno) and Ailin. They have completely realistic expectations and would like to pursue palliative care. Initially they were wanting patient discharged to home; however, he resides with the and does not have 24-hour care outside of his who physically would not be able to care for him. They are to have a family meeting today to talk about pl acement. Palliative care consultedappreciate recommendations Plan of care discussed with Dr. Medrano. Further orders as warranted. Admission and Anticipated Discharge Date Admission Date: January 31, 2021 Subjective Patient seen on daily rounds today. Still with pain in his legs secondary to the wounds but otherwise he vocalizes no significant complaints or concerns. Denies fevers, chills, chest pain, shortness of breath, orthopnea, PND, cough. Arterial Doppler of the bilateral lower extremities done yesterday showing advanced PAD with occluded arteries. In conjunction with this wound of the left lower extremity requiring I&D and likely wound VAC (as muscle involvement noted)patient has substantial vascular compromise and wound healing would be a major concern. Initially, vascular surgery consulted; however, unavailable until 02/10. Even with vascular, suspected patient may end up requiring amputation. I have discussed this in great detail with his family (son/[id number]/) in addition to Dr. Mendiola. Unfortunately, surgical intervention of this wound without vascular intervention would cause a persistent nonhealing wound. With his substantial vascular compromise, in addition to this active woundneed for amputation would be likely. This would lead to further deconditioning/bedbound state and overall likely decline. I did offer transfer to [place] where he can be evaluated by vascular surgery; however, family requesting palliative care at this time but they declined. In addition, I did voice my concern that he would be a very high risk for any surgical intervention given this right-sided opacity likely consistent with pneumonia and associated moderate effusion. Moderate effusion seems multifactorial (likely from pneumonia and pulmonary vascular congestion). Patient has been on IV Lasix. He is not having any respiratory compromise at present. He denies shortness of breath. He is not hypoxic. He is hemodynamically stable. Family is requesting completion of antibiotic therapy (but aware that this will not improve the leg) but more so for this questionable pneumonia and requesting palliative care at this time. Review of Systems Review of Systems: limited. All systems reviewed and are unremarkable except as noted in HPI and below Denies fevers, chills, headache, nasal congestion, sore throat, cough, chest pain, shortness of breath, abdominal pain, nausea, vomiting, dysuria Physical Exam Physical Exam: General: Resting comfortably in his hospital bed. Does not appear ill or toxic. excessively somnolent but arousable and seems to answer questions appropriately Neck: No JVD. Negative hepatojugular reflex Cardiac: distant Lungs: Breathing comfortably on ambient air. No respiratory distress. No accessory muscle use. Diminished primarily in the bases (R>L) Abdomen: Normoactive X4. Soft and nontender in all quadrants. Extremities: No peripheral clubbing cyanosis or edema Neuro: oriented to place, time and somewhat to situation Skin:legs with wound on bilateral calves (L much greater than right). Surrounding tissue has improved and is no longer erythematous or edematous. Left leg Wound still with copious mucopurulent drainage Results & Data Results & Data ([facility]) Vital Signs (Past 12 Hours) Vital Signs Temp Pulse Pulse Resp BP Pulse Ox 02/03/21 17:08 54 L 02/03/21 15:41 36.4 C L 49 L 16 108/56 L 96 02/03/21 08:09 36.8 C 59 L 16 139/81 95 Laboratory Results 02/03/21 06:43 02/03/21 06:43 Surface Wound Culture Final 02/03/21-0907 Organism 1 Pseudomonas aeruginosa Quantity Many Sens Sensitivities to Follow P [facility] --- --------- Cefepime S <=2 Ceftazidime S 4 Ciprofloxacin S <=0.25 Gentamicin S <=4 Levofloxacin S 1 Meropenem S <=1 Tobramycin S <=4 Pip/Tazo S <=16 Diagnostic Findings Arterial Doppler of the bilateral lower extremities IMPRESSION: 1. Technically difficult exam due to lower extremity pain which precluded full evaluation. 2. Extensive atherosclerotic plaque within the bilateral lower extremities, greater on the left. Occluded left posterior tibial and peroneal arteries with monophasic dampened flow within the left anterior tibial and dorsalis pedis. 3. Occluded right posterior tibial artery. 4. Monophasic flow within the left common femoral artery which raises the possibility of inflow disease. Follow-up chest x-ray: IMPRESSION: 1. Persistent moderate right and small left pleural effusions with extensive right lower lung opacity. Continued radiographic follow-up is recommended. 2. Cardiomegaly. PG Care Time/CCT Total # of Minutes Spent Total Time Spent with Patient: Total time spent is greater than 50% in coordination of care (as documented) at patient's floor/unit and/or counseling patient: 90 min [place] [address] Subseq Hosp Care Lvl 3 Patient Type Established Diagnoses Cellulitis of leg L03.115 Laterality: right Pleural effusion J90 Dementia F03.90 Atrial fibrillation I48.91 Electrolyte abnormality E87.8 Time Spent (min) 90 (1) Cellulitis of leg Laterality: right Qualified Code(s): L03.115 - Cellulitis of right lower limb
[2021-02-03] MEDS: THIAMINE HCL 100 MG TAB PO SCH (21:12)
[2021-02-03] MEDS: traZODone HCL 50 MG TAB PO PRN (21:16)
--- NOTE | 2021-02-04 06:32 | Surgery Progress Note ---
Date of Service February 04, 2021 Assessment & Plan (1) Decubitus ulcer: Plan: Reviewed notes from palliative care and hospitalist service We will not pursue surgical intervention at this time I do not feel that this would improve his quality of life with his other adrienne rbidities Continue with local wound care as best possible IV antibiotics for now, continued p.o. if patient discharged Discussing alf facility Admission and Anticipated Discharge Date Admission Date: January 31, 2021 Results & Data ([facility]) Vital Signs (Past 12 Hours) Vital Signs Temp Pulse Resp BP Pulse Ox 02/03/21 23:00 36.3 C L 62 16 121/65 94 PG Care Time/CCT Total # of Minutes Spent Total Time Spent with Patient: Total time spent is greater than 50% in coordination of care (as documented) at patient's floor/unit and/or counseling patient: Coding Level of Care Code None Diagnoses Decubitus ulcer L89.90
[2021-02-04 07:03] LABS: Basophils # (auto) 0.03 K/uL (0-0.2); Basophils % (auto) 0.3 %; Eosinophils # (auto) 0.06 K/uL (0-0.5); Eosinophils % (auto) 0.7 %; Hematocrit (blood only) 31.8 % (42-52); Hemoglobin 9.9 g/dL (14.0-18.0); Immature Granulocytes # (auto) 0.02 K/uL (0.00-0.02); Immature Granulocytes % (auto) 0.2 %; Lymphocytes # (auto) 1.27 K/uL (1.2-3.4); Lymphocytes % (auto) 13.8 %; Mean Corpuscular Hemoglobin 28.2 pg (25-34); Mean Corpuscular Hgb Conc 31.1 g/dL (32-36); Mean Corpuscular Volume 90.6 fL (80-100); Mean Platelet Volume 9.3 fL (7.4-10.4); Monocytes % (auto) 11.9 %; Neutrophils # (auto) 6.75 K/uL (1.4-6.5); Neutrophils % (auto) 73.1 %; Platelet Count 462 K/uL (130-400); Red Blood Count 3.51 M/uL (4.7-6.1); White Blood Count 9.23 K/uL (4.8-10.8)
[2021-02-04 07:14] LABS: INR 1.5 (0.9-1.1); Prothrombin Time 14.5 Seconds (9.0-12.0)
[2021-02-04] MEDS: HYDROcodone/ACETAMINOPHEN 10/325 TAB PO PRN (07:30)
[2021-02-04] MEDS: LORazepam 0.5 MG TAB PO PRN ×2 (07:30→14:13)
[2021-02-04 07:35] LABS: BUN Creatinine Ratio 26.2 (10-20); Creatinine Clr Calc Pharmacy 83.7 ml/min; Est GFR (African American) 104.8 ml/min; Est GFR (Non-African American) 90.4 ml/min; Potassium 3.9 mmol/L (3.5-5.1)
[2021-02-04] MEDS: PIPERACILLIN/TAZOBACTAM 3.375 GM in DEXTROSE 5% 100 ML IV SCH ×2 (09:17→16:20)
[2021-02-04] MEDS: PANTOprazole 40 MG TAB PO SCH (09:22)
[2021-02-04] MEDS: FUROSEMIDE 20 MG TAB PO SCH (09:22)
[2021-02-04] MEDS: MAGNESIUM OXIDE 400 MG TAB PO SCH (09:22)
[2021-02-04] MEDS: ATENOLOL 25 MG TABLET PO SCH (09:22)
[2021-02-04] MEDS: FINASTERIDE 5 MG TAB PO SCH (09:22)
[2021-02-04] MEDS: INSULIN ASPART 100 UNITS/ML 3 ML PEN SC SCH ×2 (10:02→11:45)
[2021-02-04] MEDS: HYDROmorphone HCL 2 MG TAB PO PRN (14:13)
--- NOTE | 2021-02-04 14:14 | Palliative Care Progress Note ---
Date of Service February 04, 2021 Assessment & Plan (1) Pain: Plan: Discontinue hydrocodone/APAP. His daughter reports that he had good relief with hydromorphone. Will rotate to po hydromorphone. (2) Palliative care encounter: Plan: After family meeting yesterday, goal is comfort with continuation of antibiotics until family members arrive from out of state. He will likely need placement and this has been discussed with family who are concerned about limitations to visiting hours. Case management involved. I spoke with his son, Bruno, on the phone today. He is agreeable to rotating opioid. We also discussed discontinuation of insulin with risk of hypoglycemia if he has decreased po intake. Given goal of comfort, Bruno is agreeable to stopping insulin and fingerstick glucose checks. (3) Peripheral vascular disease: (4) Cellulitis: (5) Atrial fibrillation: (6) Heart failure with preserved ejection fraction: (7) Dementia: Admission and Anticipated Discharge Date Admission Date: January 31, 2021 Subjective He is sitting up in chair. Per RN he ate about 1/3 of breakfast. Bob complains of pain in his right leg. He grimaces and calls out with transfer to bed. He has had hydrocodone/APAP x 2 with partial relief. Review of Systems Review of Systems: Unobtainable due to cognitive status [place] Symptom Assessment Scale PainAD 2/3 Dyspnea by observation 0/3 Palliative Performance Score 40% Physical Exam Constitutional: + frail appearing; no acute distress ENMT: Mouth: oral mucous membranes not dry Respiratory: normal respiratory effort; no labored breathing Cardiovascular: Extremities: + edema Gastrointestinal (Abdomen): nontender Musculoskeletal: Extremities: + muscle atrophy Neurologic: awake and + confused Speech / Cognition: + abnormal cognition Results & Data ([facility]) Vital Signs (Past 12 Hours) Vital Signs Temp Pulse Resp BP Pulse Ox 02/04/21 07:58 97.7 F 70 20 152/71 H 91 PG Care Time/CCT Total # of Minutes Spent Total Time Spent with Patient: Total time spent is greater than 50% in coordination of care (as documented) at patient's floor/unit and/or counseling patient: Coding Level of Care Code 93001 Subseq Hosp Care Lvl 2 Diagnoses Pain R52 Palliative care encounter Z51.5 Peripheral vascular disease I73.9 Cellulitis L03.90 Atrial fibrillation I48.91 Heart failure with preserved ejection fraction I50.30 Dementia F03.90
[2021-02-04] MEDS: ACETAMINOPHEN 325 MG TAB PO PRN (16:25)
--- NOTE | 2021-02-04 20:44 | Hospitalist Progress Note ---
Date of Service February 04, 2021 Assessment & Plan (1) Cellulitis of leg: Plan: * Cellulitis with impressive wound on bilateral legs (L>R) * MRI suggesting myositis/muscle involvement * * Continue Zosyn. Wound culture showing preliminary growth of Pseudomonas. Zosyn should provide adequate coverage. family has agreed to palliative care approach with symptom control being their goal, however they do not wish to stop antibiotics at this time but may transition to stopping antibiotics once patient transition from the acute care setting to more palliative care setting in either snf facility with her home (2) Pleural effusion: Plan: * Does not appear to be symptomatic * Opacity suggested in the right lower lobe. * Pleural effusion likely multifactorial but patient is asymptomatic. * CT does not show an obvious mass * Pulmonology consulted and case discussed with Dr. Norris. Benefit of thoracentesis does not outweigh the risk with his chronic comorbidities and anticoagulation therapy given the fact that patient is asymptomatic. (3) Dementia: Plan: * Baseline. at bedside and confirmed he is confusion at baseline (4) Atrial fibrillation: Plan: * Currently in a normal sinus rhythm with controlled ventricular rate. * Coumadin on hold patient's aortic valve is bovine * Palliation her goal starting Coumadin therapy could provide more risk than benefit especially of checking INR will be challenging and painful to have venipuncture (5) Electrolyte abnormality: Plan: -Hypomagnesemia/hypokalemiareplete Plan: Palliative care discussion was undertaken patient likely transition to palliative care Admission and Anticipated Discharge Date Admission Date: January 31, 2021 Subjective Patient seen in the presence of his , he is intermittently sleeping. He is lying on his right side. When awoken he says he feels comfortable and has no new requests or complaints confirms he is palliative care they are considering transition to home with family versus snf facility. They are noncommittal yet about duration of antibiotics in this situation. They understand his leg is not fixable due to vascular disease and infection Review of Systems Review of Systems: Patient is calm and has no active complaints but a full review of systems not completed due to lethargy from pain medication Physical Exam Physical Exam: The patient appeared sedated but comfortable Vital signs as documented. Lungs are clear to auscultation and appear unlabored although with shallow respirations Cardiac exam, Rhythm is regular. Bradycardic at times. No murmurs, rubs or gallops. Abdominal exam reveals normal bowel sounds, soft non tender, no masses Extremities are trace edematous, left leg with documented ulcerative change Neurologic exam is sedate but when awake and answers questions appropriately low falls back to sleep easy Skin is with chronic infective changes Results & Data Results & Data ([facility]) Vital Signs (Past 12 Hours) Vital Signs Temp Pulse Resp BP Pulse Ox 02/04/21 15:45 97.5 F L 55 L 20 138/82 91 PG Care Time/CCT Total # of Minutes Spent Total Time Spent with Patient: Total time spent is greater than 50% in coordination of care (as documented) at patient's floor/unit and/or counseling patient: Coding Level of Care Code 75790 Subseq Hosp Care Lvl 2 Diagnoses Cellulitis of leg L03.115 Laterality: right Pleural effusion J90 Dementia F03.90 Atrial fibrillation I48.91 Electrolyte abnormality E87.8 (1) Cellulitis of leg Laterality: right Qualified Code(s): L03.115 - Cellulitis of right lower limb
[2021-02-05] MEDS: PIPERACILLIN/TAZOBACTAM 3.375 GM in DEXTROSE 5% 100 ML IV SCH ×2 (00:15→07:53)
[2021-02-05] MEDS: HYDROmorphone HCL 2 MG TAB PO PRN ×2 (00:53→22:24)
[2021-02-05] MEDS: LORazepam 0.5 MG TAB PO PRN ×2 (02:08→14:45)
[2021-02-05] MEDS: ATENOLOL 25 MG TABLET PO SCH (07:58)
[2021-02-05] MEDS: FINASTERIDE 5 MG TAB PO SCH (07:59)
[2021-02-05] MEDS: PANTOprazole 40 MG TAB PO SCH (07:59)
[2021-02-05] MEDS: FUROSEMIDE 20 MG TAB PO SCH (07:59)
[2021-02-05] MEDS: levoFLOXacin/D5W 750 MG/150 ML BAG IV SCH (12:24)
[2021-02-05] MEDS ORDERED: bisacodyL 10 MG SUPP PR STA (13:49)
--- NOTE | 2021-02-05 20:07 | Hospitalist Progress Note ---
Date of Service February 05, 2021 Assessment & Plan (1) Cellulitis of leg: Plan: * Cellulitis with impressive wound on bilateral legs (L>R) * MRI suggesting myositis/muscle involvement * * Pseudomonas sensitive to levofloxacin this was changed on 02/05 could be continued orally once leaving our facility. Family has agreed to palliative care approach with symptom control being their goal, however they do not wish to stop antibiotics at this time eventual transfer to palliative care at a alf facility (2) Pleural effusion: Plan: * Does not appear to be symptomatic * Opacity suggested in the right lower lobe. * Pleural effusion likely multifactorial but patient is asymptomatic. * CT does not show an obvious mass * Pulmonology consulted and case discussed with Dr. Norris. Benefit of thorac entesis does not outweigh the risk with his chronic comorbidities and anticoagulation therapy given the fact that patient is asymptomatic. (3) Dementia: Plan: * Baseline. at bedside and confirmed he is confusion at baseline (4) Atrial fibrillation: Plan: * Currently in a normal sinus rhythm with controlled ventricular rate. * Coumadin on hold patient's aortic valve is bovine * Palliation her goal starting Coumadin therapy could provide more risk than mary efit especially of checking INR will be challenging and painful to have venipuncture (5) Electrolyte abnormality: Plan: -Hypomagnesemia/hypokalemiareplete Plan: Palliative care discussion was undertaken patient likely transition to palliative care Admission and Anticipated Discharge Date Admission Date: January 31, 2021 Subjective Patient states he has no complaints or problems with his confused today and thinks he is in [place]. He was complaining of some constipation and suppository was ordered so look in the transition to hospice to alf facility probably on February 06 previously confirms he is palliative care they are to transition to hospice care at alf facility. They are noncommittal yet about duration of antibiotics in this situation. They understand his leg is not fixable due to vascular disease and infection Review of Systems Review of Systems: Patient is calm and has no active complaints but a full review of systems not completed due to lethargy from pain medication and confusion Physical Exam Physical Exam: The patient appeared sedated but comfortable mildly confused Vital signs as documented. Lungs are clear to auscultation and appear unlabored although with shallow respirations Cardiac exam, Rhythm is regular. Bradycardic at times. No murmurs, rubs or gallops. Abdominal exam reveals normal bowel sounds, soft non tender, no masses Extremities are trace edematous, left leg with documented ulcerative change Neurologic exam is sedate but when awake and answers questions appropriately low falls back to sleep easy Skin is with chronic infective changes Results & Data Results & Data ([facility]) Vital Signs (Past 12 Hours) Vital Signs Temp Pulse Resp BP Pulse Ox 02/05/21 15:40 97.3 F L 93 H 16 131/78 95 PG Care Time/CCT Total # of Minutes Spent Total Time Spent with Patient: Total time spent is greater than 50% in coordination of care (as documented) at patient's floor/unit and/or counseling patient: Coding Level of Care Code 76666 Subseq Hosp Care Lvl 2 Diagnoses Cellulitis of leg L03.115 Laterality: right Pleural effusion J90 Dementia F03.90 Atrial fibrillation I48.91 Electrolyte abnormality E87.8 (1) Cellulitis of leg Laterality: right Qualified Code(s): L03.115 - Cellulitis of right lower limb
[2021-02-05] MEDS: traZODone HCL 50 MG TAB PO PRN (21:44)
[2021-02-06] MEDS: LORazepam 0.5 MG TAB PO PRN ×2 (03:35→09:54)
[2021-02-06] MEDS: HYDROmorphone HCL 2 MG TAB PO PRN (07:29)
[2021-02-06] MEDS: PANTOprazole 40 MG TAB PO SCH (07:30)
[2021-02-06] MEDS: FUROSEMIDE 20 MG TAB PO SCH (07:30)
[2021-02-06] MEDS: ATENOLOL 25 MG TABLET PO SCH (07:30)
[2021-02-06] MEDS: FINASTERIDE 5 MG TAB PO SCH (07:30)
[2021-02-06] MEDS ORDERED: HYDROmorphone INJ 0.5 MG/0.5 ML SYR IV PRN ×2 (09:16→12:01)
[2021-02-06] MEDS ORDERED: HYDROmorphone INJ 1 MG/ML SYRINGE IV PRN ×2 (09:16→10:49)
--- NOTE | 2021-02-06 12:32 | Palliative Care Progress Note ---
Date of Service February 06, 2021 Assessment & Plan (1) Pain: Plan: Uncontrolled. Discussed with Dr. Angeles and with Bob's son, Bruno. He is not stable for transfer to [facility] today. He would benefit from hydromorphone infusion for pain control. I spoke with his son about starting infusion and he is agreeable to this. We did also discuss that sometimes symptom escalation like this is a sign that we are approaching his dying time. Bruno understands this. (2) Anxiety: Plan: With increased pain as well. Will increase lorazepam dosing and change to parenteral route. (3) Palliative care encounter: Plan: I spoke with Bruno about change in discharge plan for today. He tells me that his mother had been hoping that Bob would be discharged today so that she would be able to visit him. Family is clear that goal of care for Bob is comfort. Mrs. Yancey is able to visit outside of scheduled visiting hours and may have o ne person accompany her due to her frail health. I did notify the patient coordinator front desk. Plan remains discharge to [facility] with hospice when pain is controlled. (4) Peripheral vascular disease: (5) Cellulitis: (6) Dementia: Admission and Anticipated Discharge Date Admission Date: January 31, 2021 Subjective Restless, calling out, complains of pain in his right leg despite oral and parenteral hydromorphone as well as lorazepam. Review of Systems Review of Systems: [place] Symptom Assessment Scale Pain 2/3 Dyspnea 0/3 Anxiety 1/3 Drowsiness 1/3 Palliative Performance Score 30% Physical Exam Constitutional: + ill appearing; + uncomfortable ENMT: Mouth: + dry oral mucous membranes Respiratory: normal respiratory effort; no labored breathing Cardiovascular: Rate/Rhythm: regular rate and regular rhythm Neurologic: confused, agitated Results & Data ([facility]) Vital Signs (Past 12 Hours) Vital Signs Temp Pulse Resp BP Pulse Ox 02/06/21 07:19 97.5 F L 91 H 28 H 135/81 90 PG Care Time/CCT Total # of Minutes Spent Total Time Spent: 75 Total Time Spent with Patient: Total time spent is greater than 50% in coordination of care (as documented) at patient's floor/unit and/or counseling patient:symptom management, goals of care, hospice care, coordination of care. Coding Level of Care Code 04926 Prolonged Care (int'l) Diagnoses Pain R52 Palliative care encounter Z51.5 Peripheral vascular disease I73.9 Cellulitis L03.90 Dementia F03.90 Anxiety F41.9 Time Spent (min) 75
[2021-02-06] MEDS ORDERED: HYDROmorphone/NSS 100 MG/100 ML BAG IV SCH (13:00)
[2021-02-06] MEDS: levoFLOXacin/D5W 750 MG/150 ML BAG IV SCH (13:05)
--- NOTE | 2021-02-06 17:24 | Hospitalist Progress Note ---
Date of Service February 06, 2021 Assessment & Plan (1) Cellulitis of leg: Plan: * Cellulitis with impressive wound on bilateral legs (L>R) * MRI suggesting myositis/muscle involvement * Poor circulation nonamenable to repair * Pseudomonas Family has agreed to palliative care approach with symptom control being their goal, however they now wish to stop antibiotics initiating opiate infusion as transition to comfort/palliative care here for better pain control (2) Pleural effusion: Plan: * Increasingly dyspneic due to declining condition * Opacity suggested in the right lower lobe. * Pleural effusion likely multifactorial but patient is asymptomatic. * CT does not show an obvious mass * Pulmonology consulted and case discussed with Dr. Norris. Benefit of thoracentesis does not outweigh the risk with his chronic comorbidities and anticoagulation therapy (3) Dementia: Plan: * Baseline. son at bedside and confirmed he is confusion at baseline (4) Atrial fibrillation: Plan: * Currently in a normal sinus rhythm with controlled ventricular rate. * Coumadin on hold patient's aortic valve is bovine * Palliation goal starting Coumadin therapy could provide more risk than benefit especially of checking INR will be challenging and painful to have venipuncture (5) Electrolyte abnormality: Plan: -Hypomagnesemia/hypokalemia Plan: Palliative care discussion was undertaken initiation of continuous morphine infusion Admission and Anticipated Discharge Date Admission Date: January 31, 2021 Subjective Patient was still having some pain mild confusion escalated to morphine drip by palliative care. Removed a private room. Pain control suboptimal at this point time. Patient has leg infection with poor circulation pain associated with this ischemic issue. No hope of resolving the ischemia therefore and hope of healing the leg. Review of Systems Review of Systems: Severe distress and moderate fatigue no headache, no visual changes no speech or swallowing issues no chest pain, pressure or palpitations Mild shortness of breath at rest no abdominal pain, nausea or vomiting, diarrhea or constipation no dysuria, hematuria or frequency Distal lower extremity pain no back pain, CVA tenderness or radicular pain no bruising, bleeding or rashes Patient is intermittently confused Physical Exam Physical Exam: The patient appeared ill and entering into phase of dying Vital signs as documented. Lungs are diminished and beginning to be labored Cardiac exam, Rhythm is regular.. Stock ejection murmur Abdominal exam reveals normal bowel sounds, soft non tender, no masses Extremities are cool to touch nonhealing ulcerations were seen Neurologic exam is waking complaining of pain intermittently confused Skin is with non-healing skin ulcers Results & Data Results & Data ([facility]) Vital Signs (Past 12 Hours) Vital Signs Temp Pulse Resp BP Pulse Ox 02/06/21 07:19 97.5 F L 91 H 28 H 135/81 90 PG Care Time/CCT Total # of Minutes Spent Total Time Spent with Patient: Total time spent is greater than 50% in coordination of care (as documented) at patient's floor/unit and/or counseling patient: Coding Level of Care Code 73644 Subseq Hosp Care Lvl 2 Diagnoses Cellulitis of leg L03.115 Laterality: right Pleural effusion J90 Dementia F03.90 Atrial fibrillation I48.91 Electrolyte abnormality E87.8 (1) Cellulitis of leg Laterality: right Qualified Code(s): L03.115 - Cellulitis of right lower limb
[2021-02-06] MEDS ORDERED: LIDOCAINE 2% JELLY 5 ML TUBE EXT ONE (18:08)
[2021-02-06] MEDS ORDERED: LIDOCAINE 2% JELLY 5 ML TUBE ONE (18:11)
[2021-02-06] MEDS: LORazepam 1 MG/2 ML VIAL IV PRN (22:19)
[2021-02-07] MEDS: LORazepam 1 MG/2 ML VIAL IV PRN ×3 (03:47→13:12)
[2021-02-07] MEDS: ATENOLOL 25 MG TABLET PO SCH (09:37)
[2021-02-07] MEDS: FINASTERIDE 5 MG TAB PO SCH (09:37)
[2021-02-07] MEDS: PANTOprazole 40 MG TAB PO SCH (09:38)
--- NOTE | 2021-02-07 12:28 | Palliative Care Progress Note ---
Date of Service February 07, 2021 Assessment & Plan (1) Pain: Plan: Hydromorphone infusion titrated to 1mg/hr. He appears comfortable at rest. Discussed bolus dosing prior to care with RN. (2) Anxiety: Plan: Continue prn lorazepam (3) Palliative care encounter: Plan: I met with his and daughters in the room at bedside. We discussed what to expect. I anticipate that he will within hours to a day or so. Family denies concerns about his comfort at this time. (4) Peripheral vascular disease: (5) Cellulitis of leg: (6) Dementia: Admission and Anticipated Discharge Date Admission Date: January 31, 2021 Subjective Unresponsive. Calls out with position change or routine care. No prn hydromorphone doses. Did have lorazepam for restlessness. Review of Systems Review of Systems: Unobtainable due to reduced consciousness [place] Symptom Assessment Scale PainAD 0/3 Dyspnea by observation 0/3 Palliative Performance Score 10% Physical Exam Constitutional: no acute distress ENMT: Mouth: + dry oral mucous membranes Respiratory: apnea, no audible rhonchi, no labored breathing Cardiovascular: no mottling Gastrointestinal (Abdomen): nontender Neurologic: + obtunded Results & Data ([facility]) Vital Signs (Past 12 Hours) Vital Signs Temp Pulse Resp BP Pulse Ox 02/07/21 08:56 97.3 F L 88 12 119/63 82 L PG Care Time/CCT Total # of Minutes Spent Total Time Spent: 35 Total Time Spent with Patient: Total time spent is greater than 50% in coordination of care (as documented) at patient's floor/unit and/or counseling patient: symptom management, prognosis, what to expect, family education and support. Coding Level of Care Code 82647 Subseq Hosp Care Lvl 3 Diagnoses Pain R52 Anxiety F41.9 Palliative care encounter Z51.5 Peripheral vascular disease I73.9 Cellulitis of leg L03.115 Laterality: right Dementia F03.90 (1) Cellulitis of leg Laterality: right Qualified Code(s): L03.115 - Cellulitis of right lower limb
--- NOTE | 2021-02-07 16:43 | Discharge Summary ---
Date of Service February 07, 2021 Admission HPI Per Admitting Provider 89 y/o M Hx HTN, HLD, DM, advanced dementia, AF, CAD, diastolic CHF. The pt was discharged from a rehab facility one day prior and has not been managing well at home. He is lethargic and weak per family. No CP, cough, fevers, n/v or diarrhea reported. The pt cannot provide any additional information. He does appear to have cellulitis and worsening of a LLE ulcer. Labs are notable for stable anemia, mild hyponatremia. Additionally, there is a new moderate R pleural effusion associated with an opacity in the R lung. 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 12) BPH Surgical: TAVR Social: Distant 15 year pack history Does not drink Family: Noncontributory Principal Diagnosis while on comfort care ischemic leg pain osteomyelitis leg Discharge Exam pt pronounced at 1613 hours with out audible heart tones or spontaneous respirations or pulse Discharge Data Allergies Allergy/AdvReac Type Severity Reaction Status Date / Time adhesive Allergy Unknown SKIN Verified 01/31/21 14:29 IRRITATION diphenhydramine AdvReac Unknown PROSTATE Verified 01/31/21 14:29 PROBLEMS Latex Allergy Unknown Rash Uncoded 01/31/21 14:29 all antihistamines AdvReac Severe prostate Uncoded 01/31/21 14:29 problems Consultations 01/31/21 13:04 ED Decision to Admit Stat 02/02/21 12:53 Consult General Surgery Routine Consult Pulmonology Routine 02/02/21 15:14 Consult Anesthesiology Routine 02/03/21 11:07 Consult Palliative Care Routine Ordered Studies 02/01/21 10:41 CT chest diagnostic w con Routine MR lower leg LT wo/w con Routine 02/02/21 14:37 US arterial duplex LE BI Routine Hospital Course (1) : Palliative care discussion was undertaken initiation of continuous morphine infusion and pt at 1613 hours 02/07/21 (2) Cellulitis of leg: * Cellulitis with impressive wound on bilateral legs (L>R) * MRI suggesting myositis/muscle involvement * Poor circulation nonamenable to repair * Pseudomonas Family has agreed to palliative care approach with symptom control being their goal, however they wished to stop antibiotics initiating opiate infusion as transition to comfort/palliative care here for better pain control (3) Pleural effusion: * Increasingly dyspneic due to declining condition * Opacity suggested in the right lower lobe. * Pleural effusion likely multifactorial but patient is asymptomatic. * CT does not show an obvious mass * Pulmonology consulted and case discussed with Dr. Norris. Benefit of thoracentesis does not outweigh the risk with his chronic comorbidities and anticoagulation therapy (4) Dementia: * Baseline. son at bedside and confirmed he is confusion at baseline (5) Atrial fibrillation: * Currently in a normal sinus rhythm with controlled ventricular rate. * Coumadin on hold patient's aortic valve is bovine * Palliation goal starting Coumadin therapy could provide more risk than benefit especially of checking INR will be challenging and painful to have venipuncture (6) Electrolyte abnormality: -Hypomagnesemia/hypokalemia Total Time Total Time Spent Total Time Spent (In Minutes): greater than 30 minutes were required to prepare this discharge Discharge Plan Discharge Items Patient Disposition: Hospice - Medical Facility Reason For Visit: LEG PAIN Discharge Diagnosis: chronic leg infection, transtion to hospice care Activity: Per Instructions section Activity Comment: will be converted to hospice Non-emergency contact: Primary Care Provider Call non-emergency contact if: your pain is not controlled Follow-up/Referrals: Stella Mazariegos CRNP [Primary Care Provider] - Diet: Regular Addtl Attending Provider Instructions: please follow direction of hospice care once transitioned to intermediate facility, Pending Studies at Discharge: No Stand-Alone Forms: [facility] Skilled Items Patient informed of condition?: Yes DNR: Yes Discharge Level of Care: Other Communicable Disease: No Discharge Prognosis: Deteriorating Lines: None Urinary Catheter: Yes Medications and DC Order Prescriptions: New lorazepam 0.5 mg Tablet 0.5 mg PO Q6H PRN (Reason: anxiety) Qty: 20 RF: 0 hydromorphone [Dilaudid] 2 mg Tablet 2 mg PO Q4H PRN (Reason: pain) Qty: 20 RF: 0 morphine concentrate 100 mg/5 mL (20 mg/mL) solution 10 mg PO Q6H Qty: 15 RF: 0 Continued nitroglycerin [Nitrostat] 0.4 mg tablet, sublingual 0.4 mg SL Q5M PRN (Reason: chest pain) Qty: 20 RF: 1 pantoprazole 40 mg tablet,delayed release (DR/EC) 40 mg PO DAILYBB RF: 0 Changed trazodone 50 mg tablet 50 mg PO HS PRN (Reason: Pain) Qty: 0 RF: 0 Discontinued clopidogrel 75 mg tablet 75 mg PO QAM RF: 0 atenolol 50 mg tablet 50 mg PO HS RF: 0 vitamin E 100 unit Capsule 400 unit PO QPM RF: 0 cholecalciferol (vitamin D3) [Vitamin D3] 1,000 unit Capsule 1,000 unit PO QPM RF: 0 finasteride 5 mg tablet 5 mg PO QAM RF: 0 metformin 1,000 mg tablet 1,000 mg PO BID RF: 0 thiamine HCl (vitamin B1) [Vitamin B-1] 100 mg Tablet 100 mg PO QPM RF: 0 acyclovir 200 mg Capsule 200 mg PO UD PRN (Reason: Wound Healing) RF: 0 atorvastatin 40 mg tablet 40 mg PO QAM RF: 0 cephalexin 500 mg capsule 500 mg PO BID RF: 0 cyanocobalamin (vitamin B-12) 1,000 mcg/mL solution 1,000 mcg IM MONTHLY RF: 0 warfarin 2 mg tablet 0 mg PO DIRECTED RF: 0 quetiapine 25 mg tablet 0 mg PO DIRECTED RF: 0 Admission Data Admit Date/Time: 01/31/21 15:14 Attending Provider: Ricki Angeles Admit Provider: Adalid Peck Primary Care Provider: Stella Mazariegos. Other Providers: Adalid Peck ; [facility] [place] ; Gladys Quach ; Lisbeth Garcia ; Ruth Darnell ; Siobhan Burnett ; Catie Puente ; Alban Lawrence ; Jitendra Lee ; Alfonso Coker ; Marcus Joel ; Ruth Joel ; Phong Ahuja ; Snow Baires ; Isael Iverson ; Ari Garvin ; Ang Hodge ; Michael Patiño ; Aline Alegria ; Terry Samaniego ; Lara Franco ; Shayla Samaniego ; Eduardo Ro ; Marcela Carrera ; Charlie Mohr. ; Winsome Dc ; Magi Nelson ; Marcela Thomson ; Gia Robison ; Stanislaw Delgado ; Ruthie Benitez ; Taylor Joseph ; Samira Curry ; Radha Vinson ; Huseyin Vinson V ; Mehran Zambrano ; Lisbeth Saab ; Rob Randhawa ; Jahaira Cervantes ; Nereida Pappas ; Huseyin Small ; Lex Alegria ; Emmett Carvajal ; Gwen Rey ; Samira Wood ; Charlie Leong ; Fabio Patiño ; Cheryl Clement ; Maykel Pires ; Gerardo Zayas ; Ebenezer Holloway ; Johan Inman ; Maykel Carter ; Alban Chavez Jr ; Tammy Beasley ; Chris Mendiola ; Sergio Norris ; Sabra Dallas Coding Level of Care Code D/C DAY MANAGEMENT >30 MINS Diagnoses Cellulitis of leg L03.115 Laterality: right Pleural effusion J90 Dementia F03.90 Atrial fibrillation I48.91 Electrolyte abnormality E87.8 R99
--- NOTE | 2021-02-18 08:09 | Coding Query ---
PRESSURE ULCER DOCUMENTATION To promote full compliance with coding requirements relating to patient care, physician participation is requested in all cases of printing table hand uncertainty. Please assist us with the question(s) below: Please specify the known or suspected type by placing an "X" within the parenthesis (x). A pressure ulcer of the left posterior proximal leg is documented as on the Surgery Consultation and Progress Notes If possible, please check the box that provides the specific stage of the pressure ulcer ( ) Stage I ( ) Stage II ( ) Stage III ( ) Stage IV ( ) Unstageable (x ) Unable to determine Was the pressure ulcer present on admission? Please check the appropriate box for the pressure ulcer: (x ) Present on admission ( ) Not present on admission ( ) Unable to be clinically determined Thank you Shanita DOUGHERTY
--- NOTE | 2021-02-18 08:11 | Coding Query ---
CONGESTIVE HEART FAILURE To Promote full compliance with coding requirements relating to patient care, physician participation is requested in all cases of toll mechanic uncertainty. Please assist us with the following questions. A diagnosis of Congestive Heart Failure - Diastolic is documented in the patient's medical record. To accurately code this diagnosis and to compare patient severity, we ask that you specify the type of heart failure by placing an X within the parenthesis (x). DIASTOLIC HEART FAILURE ( ) Acute (xx ) Chronic ( ) Acute on Chronic ( ) Rheumatic ( ) Unknown Thank you Shanita DOUGHERTY
--- NOTE | 2021-02-18 08:14 | Coding Query ---
PRESENT ON ADMISSION QUERY To promote full compliance with coding requirements relating to pateint care, physician participation is requested in all cases of label coder uncertainty. Please assist us with the question(s) below: Please place an X within the parenthesis (x). The following diagnosis listed in this patient's medical record require physician assistance to determine if they were present on admission (POA) or not. Please advise for each diagnosis whether it was present on admission, not present on admission, or if it was clinically undetermined. 1. Osteomyelitis leg (documented on Discharge Summary) (xx ) Present On Admission ( ) Not Present On Admission ( ) Clinically Undetermined Please Specify laterality: (xx ) Left Leg ( ) Right Leg ( ) Bilateral Legs ( ) Unknown Thank you Shanita Villegas *Definition of the present on admission (POA)-Present on admission is defined as present at the time the order for inpatient admission occurs. Conditions that develop during an outpatient encounter prior to a written order for inpatient admission (including emergency department, observation, or outpatient surgery) are considered present on admission. FARHAT
--- NOTE | 2021-02-18 08:15 | Coding Query ---
To promote full compliance with coding requirements relating to patient care, provider participation is requested in all cases of cleat layer uncertainty. Please assist us with the question(s) below: Coding Question(s): The diagnosis below was documented in the record through Progress Note 02/03, then subsequently fell off all further documentation. Please indicate if it is still a possible diagnosis or ruled out. Physician's Response(s): PNEUMONIA ( ) Diagnosed and POA ( ) Diagnosed and not POA ( xx ) Ruled out ( ) Other (please specify) MTDD
--- NOTE | 2021-02-19 07:17 | Coding Query ---
To promote full compliance with coding requirements relating to patient care, provider participation is requested in all cases of bilingual hr generalist uncertainty. Please assist us with the question(s) below: Coding Question(s): The diagnosis below was documented in the ER H&P, 1st Progress Note and Pulmonary Consultation, then subsequently fell off all further documentation. Please indicate if it is still a possible diagnosis or ruled out. Physician's Response(s): PULMONARY EDEMA ( ) Diagnosed and POA. Please Specify further, in your clinical opinion, below: ( ) Acute Pulmonary Edema ( ) Chronic or Unspecified Pulmonary Edema ( ) Diagnosed and not POA. Please Specify further, in your clinical opinion, below: ( ) Acute Pulmonary Edema ( ) Chronic or Unspecified Pulmonary Edema ( ) Ruled out ( xx ) Other (please specify) not present on admission and not managed MTDD
--- NOTE | 2021-02-26 07:21 | Coding Query ---
CODING QUERY To promote full compliance with coding requirements relating to patient care, provider participation is requested in all cases of training and development coordinator uncertainty. Please assist us with the question(s) below: Coding Question(s): The Discharge Summary documents, under Principal Diagnosis, ischemic leg pain and osteomyelitis leg, and in the Hospital Course, there is documentation of Cellulitis with impressive wound on bilateral legs (L>R), and Pseudomonas. Documentation shows a diagnosis of Diabetes type 2 as well and the Surgery Consultation and Surgery Progress Notes document decubitus ulcer of the left posterior proximal leg. Your help is needed to determine the diagnosis that is most treated/most responsible for this inpatient admission that was present on admission. Please specify below, in your clinical opinion. ( ) Pseudomonas Cellulitis. Please Specify further below: ( ) likely due to Diabetes ( ) likely due to Other: Please Specify ( ) Unspecified ( ) Ischemic leg with pain ( ) Osteomyelitis of leg ( ) Decubitus Ulcer ( x ) All of these diagnosis are equally treated and present on admission. Please Specify further below regarding the Pseudomonas Cellulitis: ( x ) likely due to Diabetes ( ) likely due to Other: Please Specify ( ) Unspecified ( ) Other: Please Specify Physician's Response(s): Thank you Shanita Villegas Principal Diagnosis: "that condition established after study, to be chiefly responsible for occasioning the admission of the patient to the hospital for care." Co-Existing Principal Diagnosis: "when two or more diagnoses equally meet the criteria for principal diagnosis as determined by the circumstances of admission, diagnostic work up, and/or therapy provided, and the Alphabetic Index, Tabular List, or another coding guideline does not provide sequencing direction, any one of the diagnoses may be sequenced first." "When the physician has documented what appears to be a current diagnosis in the body of the record, but has not included the diagnosis in the final diagnostic statement, the physician should be asked whether the diagnosis should be added." (Source Coding [facility] 2 QTR90. p3-4) ARLETHD
== END 2021-02-07 18:08 | disposition expired | DRG 300 ==
LOC: ED 10:09 → 3N 15:14 → SUATTDRO 15:14 → 3N 16:24 → 3W 02-06 16:47
DX: Z95.3 Presence of xenogenic heart valve; Z79.84 Long term (current) use of oral hypoglycemic drugs; E86.0 Dehydration; M60.004 Infective myositis, unspecified left leg; Z79.01 Long term (current) use of anticoagulants; K59.00 Constipation, unspecified; Z51.5 Encounter for palliative care; Z77.22 Contact with and (suspected) exposure to environmental tobacco smoke (acute) (chronic); I70.262 Atherosclerosis of native arteries of extremities with gangrene, left leg; E78.5 Hyperlipidemia, unspecified; I25.10 Atherosclerotic heart disease of native coronary artery without angina pectoris; Z91.040 Latex allergy status; N40.1 Benign prostatic hyperplasia with lower urinary tract symptoms; J91.8 Pleural effusion in other conditions classified elsewhere; B96.5 Pseudomonas (aeruginosa) (mallei) (pseudomallei) as the cause of diseases classified elsewhere; L03.116 Cellulitis of left lower limb; L03.115 Cellulitis of right lower limb; M86.9 Osteomyelitis, unspecified; E87.1 Hypo-osmolality and hyponatremia; E11.69 Type 2 diabetes mellitus with other specified complication; E11.628 Type 2 diabetes mellitus with other skin complications; Z66 Do not resuscitate; N13.8 Other obstructive and reflux uropathy; E87.6 Hypokalemia; Z79.02 Long term (current) use of antithrombotics/antiplatelets; Z79.899 Other long term (current) drug therapy; I50.32 Chronic diastolic (congestive) heart failure; E11.52 Type 2 diabetes mellitus with diabetic peripheral angiopathy with gangrene; I11.0 Hypertensive heart disease with heart failure; Z87.891 Personal history of nicotine dependence; F03.90 Unspecified dementia, unspecified severity, without behavioral disturbance, psychotic disturbance, mood disturbance, and anxiety; F41.9 Anxiety disorder, unspecified; E83.42 Hypomagnesemia; I48.21 Permanent atrial fibrillation; Z91.048 Other nonmedicinal substance allergy status; Z88.8 Allergy status to other drugs, medicaments and biological substances; L89.899 Pressure ulcer of other site, unspecified stage; C82.91 Follicular lymphoma, unspecified, lymph nodes of head, face, and neck; K21.00 Gastro-esophageal reflux disease with esophagitis, without bleeding; I65.29 Occlusion and stenosis of unspecified carotid artery